=== PATIENT | female | born 1940 | race Caucasian/White ===

== ENCOUNTER → 2018-01-17 13:06 | Outpatient (CLI) | payer MEDICARE, OTHER, SELFPAY ==
--- NOTE | 2018-01-17 13:19 | MM_ITS ---
MM Dig screening mamm BI w/CAD CAD Screening COMPARISON: Outside digital mammograms 03/11/2016 INDICATION: There is no personal or family history of breast cancer. There is been previous biopsy left breast. TECHNIQUE: Standard CC and MLO images were obtained. R2 CAD reviewed. FINDINGS: Trauma post biopsy scarring is again noted upper outer quadrant left breast. Moderate fibro-glandular densities are seen in both breasts. There are few benign-appearing calcination is in both breasts. There is no new or suspicious lesion in either breast and no suspicious microcalcifications. IMPRESSION: Stable exam with prominent post biopsy scarring left breast BI-RADS Category: 2 Benign Finding(s) RECOMMENDED FOLLOW-UP: 1YR - 1 YEAR FOLLOW-UP (A letter has been sent to the patient regarding results of the study.)
== END ==
PROVIDERS: Visit Provider Internal Medicine Endocrinology, Diabetes & Metabolism
DX: Z12.31 Encounter for screening mammogram for malignant neoplasm of breast (principal)
CPT/HCPCS: 77067

== ENCOUNTER → 2018-01-17 14:10 | Outpatient (CLI) | payer MEDICARE, OTHER, SELFPAY ==
--- NOTE | 2018-01-17 14:11 | XR_ITS ---
XR foot wt bearing LT 3V HISTORY: ITS.REASON: pain ORDERING PHYSICIAN: Gaby Perez DPM PATIENT AGE: 77 years COMPARISON: None FINDINGS: Severe osteoarthritic changes are present at the first metatarsophalangeal joint with prominent bony hypertrophic change. No fracture or dislocation. There is mild hallux valgus with first metatarsophalangeal angle of 24 degrees. Osteoarthritic changes are also present at the PIP and DIP of the second and third digits. 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
--- NOTE | 2018-01-17 14:11 | XR_ITS ---
XR foot wt bearing RT 3V HISTORY: ITS.REASON: pain ORDERING PHYSICIAN: Gaby Perez DPM PATIENT AGE: 77 years COMPARISON: None FINDINGS: There is moderate hallux valgus with the first metatarsophalangeal angle of 35 degrees with osteoarthritic change of the first MTP joint and bony hypertrophy of the distal aspect of the first metatarsal. Osteoarthritic changes are present involving the second third and fourth toes at the PIP and the IVP. No fracture or dislocation. Flexion deformity involves the second through fifth toes. IMPRESSION: Hallux valgus with osteoarthritis and flexion deformity of the toes
== END ==
PROVIDERS: Visit Provider Podiatrist
DX: M79.671 Pain in right foot (principal); M79.672 Pain in left foot; Z12.31 Encounter for screening mammogram for malignant neoplasm of breast
CPT/HCPCS: 73630; 77067

== ENCOUNTER → 2018-04-13 11:24 | Outpatient (CLI) | payer MEDICARE, OTHER, SELFPAY ==
--- NOTE | 2018-04-13 11:27 | US_ITS ---
US Arterial Ankle Brachial Ind History: ITS.REASON: skin changes, bilateral weak pulses ORDERING PHYSICIAN: Gaby Perez DPM PATIENT AGE: 77 years TECHNIQUE: Segmental pressures obtained of both right and left leg. These are compared to brachial blood pressure to yield index at each level sampled including summary BOO. The data sheets from the procedure are available in PACS FINDINGS Rest study only performed today No prior studies available for comparison. Blood pressures reported are in millimeters mercury. RIGHT LEG BOO = 1.2. RIGHT LEG TBI=0.8 Brachial BP: 131 Thigh BP: 144 Calf BP: 157 Ankle PT: 157 Ankle DP : 148 Digit =108 LEFT LEG BOO = 1.3 LEFT LEG TBI= 0.8 Brachial BPD: 131 Thigh BP: 144 Calf BP: 157 Ankle PT:157 Ankle DP: 148 Digit = 108 Pulses and waveforms: Normal IMPRESSION: The left BOO slightly elevated at 1.3 which may be seen with vessel hardening from peripheral vascular disease. The remaining parameters are within normal limits.
== END ==
PROVIDERS: Visit Provider Podiatrist
DX: N39.0 Urinary tract infection, site not specified (principal); R09.89 Other specified symptoms and signs involving the circulatory and respiratory systems
CPT/HCPCS: 87086; 87088; 87186; 93922

== ENCOUNTER → 2018-05-09 10:43 | Outpatient (POV) | payer MEDICARE, OTHER, SELFPAY ==
[2018-05-09 11:18] VITALS: BP 130/68; PULSE 79; RESP 18; O2SAT 95
--- NOTE | 2018-05-09 12:36 | HMH.PMCON ---
Assessment and Plan (1) Degenerative disc disease Current visit: Yes Status: Acute Qualifiers: Spinal region: lumbar Qualified Code(s): M51.36 - Other intervertebral disc degeneration, lumbar region Category: Medical - Assessment and plan all Dx Assessment and Plan for all problems:: I discussed doing an epidural injection with the patient. Patient states that she is tried these before and she is here for a nerve block. I explained to the patient that using anesthetic is the nerve block. Patient does not know if she would like to move forward with this. Patient would like to make an appointment and think about it. Patient also having hip pain she would like to be by an orthopedic surgeon for this. This note was dictated using voice recognition software and may contain errors or omissions HPI - Data of Consult Consult date: 05/09/18 Requesting Physician: Camryn Pineda APRN Primary Care Provider: Luke Causey Provider: Luke Suggs - Consult Narrative Reason for consult: Back pain History of present illness: Ms. Garza is a 77 year old female resents today for consultation in regards to her low back pain. Patient states that she has quite a lot of low back pain radiating into her legs. Patient rates her pain today 9 out of 10. Patient states she is unable to take any medicine. Patient has been seen by pain management in the past with Dr. Curry. Patient received injections at that time. Patient states that she did not get any relief from them. Patient has tried and failed massage therapy, physical therapy, and chiropractic therapy. Patient states that her daughter works her physician in [place] and had told her she should try a nerve block. Patient is not on any anticoagulation medication. CC: Camryn Pineda APRN [facility] History I have reviewed the patient's past medical history: Yes Medical History: Reports:: Gastroesophageal Reflux Disease(GERD), Hyperlipidemia, Hypertension, Peripheral Vascular Disease Other Medical History: Reports: Arthritis, Glaucoma, Hypothyroidism, Other Other Surgeries: Yes: Coronary Stent, Hysterectomy-Partial Amputation: No Fractures: No - *Social History Smoking Status: Never smoker Alcohol Intake: never Alcohol Intake Frequency:: other Occupational Status: other Housing: house - Psychiatric History Expresses thoughts of harming self/others: None Suicide Plan Description: No Plan *Family Hx:: Diabetes Review of Systems - Review of Systems ROS General: no recent weight change, no fever, no sleep disturbances Respiratory: no cough, no shortness of air, no recurring pulmonary infections Cardiovascular/Peripheral Vascular: No chest pain, No palpitations, no edema, no shortness of breath. Gastrointestinal: no incontinence, normal bowel movements reported Genitourinary: no incontinence Musculoskeletal: Back pain, leg pain Psychiatric: normal mood/ affect Neurological: [denies weakness in extremities], [denies balance issues] Meds Home Medications Medication Instructions Recorded Confirmed Type cilostazol 50 mg tablet 50 mg PO ONCE 01/17/18 History latanoprost 0.005 % eye drops 1 drp OPHTHALMIC QPM 01/17/18 History levothyroxine 50 mcg tablet 50 mcg PO 90 Days tab 01/17/18 History pantoprazole 40 mg tablet,delayed PO 30 Days #60 01/17/18 History release cefuroxime axetil 250 mg tablet 250 mg PO Q12H 04/13/18 History Allergies Allergy/AdvReac Type Severity Reaction Status Date / Time From CIPRO Allergy Unknown NERVOUS,HIV Uncoded 04/13/18 08:18 ES From FLAGYL Allergy Unknown Uncoded 04/13/18 08:18 From TETANUS AND DIPHTHERIA Allergy Unknown ANAPHYLAXIS Uncoded 04/13/18 08:18 TOXOIDS A... SULFA (SULFONAMIDE) Allergy Unknown UNKNOWN Uncoded 04/13/18 08:18 Objective Vital signs: Pulse Resp BP Pulse Ox 79 18 130/68 95 05/09/18 11:18 05/09/18 11:18 05/09/18 11:18 05/09/18 11:18
--- NOTE | 2018-05-09 12:39 | P.CONS_ITS ---
Assessment and Plan (1) Degenerative disc disease Current visit: Yes Status: Acute Qualifiers: Spinal region: lumbar Qualified Code(s): M51.36 - Other intervertebral disc degeneration, lumbar region Category: Medical - Assessment and plan all Dx Assessment and Plan for all problems:: I discussed doing an epidural injection with the patient. Patient states that she is tried these before and she is here for a nerve block. I explained to the patient that using anesthetic is the nerve block. Patient does not know if she would like to move forward with this. Patient would like to make an appointment and think about it. Patient also having hip pain she would like to be by an orthopedic surgeon for this. This note was dictated using voice recognition software and may contain errors or omissions HPI - Data of Consult Consult date: 05/09/18 Requesting Physician: Camryn Pineda APRN Primary Care Provider: Luke Causey Provider: Luke Suggs - Consult Narrative Reason for consult: Back pain History of present illness: Ms. Garza is a 77 year old female resents today for consultation in regards to her low back pain. Patient states that she has quite a lot of low back pain radiating into her legs. Patient rates her pain today 9 out of 10. Patient states she is unable to take any medicine. Patient has been seen by pain management in the past with Dr. Curry. Patient received injections at that time. Patient states that she did not get any relief from them. Patient has tried and failed massage therapy, physical therapy, and chiropractic therapy. Patient states that her daughter works her physician in [place] and had told her she should try a nerve block. Patient is not on any anticoagulation medication. CC: Camryn Pineda APRN [facility] History I have reviewed the patient's past medical history: Yes Medical History: Reports:: Gastroesophageal Reflux Disease(GERD), Hyperlipidemia, Hypertension, Peripheral Vascular Disease Other Medical History: Reports: Arthritis, Glaucoma, Hypothyroidism, Other Other Surgeries: Yes: Coronary Stent, Hysterectomy-Partial Amputation: No Fractures: No - *Social History Smoking Status: Never smoker Alcohol Intake: never Alcohol Intake Frequency:: other Occupational Status: other Housing: house - Psychiatric History Expresses thoughts of harming self/others: None Suicide Plan Description: No Plan *Family Hx:: Diabetes Review of Systems - Review of Systems ROS General: no recent weight change, no fever, no sleep disturbances Respiratory: no cough, no shortness of air, no recurring pulmonary infections Cardiovascular/Peripheral Vascular: No chest pain, No palpitations, no edema, no shortness of breath. Gastrointestinal: no incontinence, normal bowel movements reported Genitourinary: no incontinence Musculoskeletal: Back pain, leg pain Psychiatric: normal mood/ affect Neurological: [denies weakness in extremities], [denies balance issues] Meds Home Medications Medication Instructions Recorded Confirmed Type cilostazol 50 mg tablet 50 mg PO ONCE 01/17/18 History latanoprost 0.005 % eye drops 1 drp OPHTHALMIC QPM 01/17/18 History levothyroxine 50 mcg tablet 50 mcg PO 90 Days tab 01/17/18 History pantoprazole 40 mg tablet,delayed PO 30 Days #60 01/17/18 History release cefuroxime axetil 250 mg tablet 250 mg PO Q12H 04/13/18 History
--- NOTE | 2018-05-18 10:37 | PC.PHONENOTE ---
contacted patient to notify her of appointment that was scheduled for orthopedist, per order of the provider at her last visit. pt states she does not want to see an orthopedist. states she has had MRI and all the shots and that she cannot have any interventions due to her age. Informed patient that this bond writer would call and cancel this appointment with the orthopedist. understanding verbalized.
== END ==
PROVIDERS: Visit Provider Clinical Nurse Specialist Family Health
DX: M51.36 Other intervertebral disc degeneration, lumbar region (principal)
CPT/HCPCS: 99202

== ENCOUNTER → 2020-10-27 16:00 | Outpatient (CLI) | payer MEDICARE, SELFPAY | PROVIDERS: Visit Provider Urology | DX: N39.0 Urinary tract infection, site not specified (principal) | CPT/HCPCS: 87086; 87088; 87186 ==

== ENCOUNTER → 2021-08-20 15:07 | Outpatient (CLI) | payer MEDICARE, SELFPAY | PROVIDERS: Visit Provider Urology | DX: N39.0 Urinary tract infection, site not specified (principal); B96.20 Unspecified Escherichia coli [E. coli] as the cause of diseases classified elsewhere | CPT/HCPCS: 87086; 87088; 87186 ==

== ENCOUNTER → 2022-03-12 15:00 | Outpatient (CLI) | payer MEDICARE, SELFPAY | PROVIDERS: PCP Nurse Practitioner; Visit Provider Nurse Practitioner | DX: R30.0 Dysuria (principal); B96.29 Other Escherichia coli [E. coli] as the cause of diseases classified elsewhere | CPT/HCPCS: 87086; 87088; 87186 ==

== ENCOUNTER → 2022-12-16 23:21 | Outpatient (CLI) | payer MEDICARE, BC, SELFPAY ==
[2022-12-16 18:20] LABS: Basophils % 0.5 % (0.1-2.0); Eosinophils % 0.5 % (0.1-12.0); Lymphocytes # 1.8 K/mm3 (0.7-4.5); Lymphocytes % 27.2 % (10-50); Mean Corpuscular HGB Conc 32.1 g/dL (31.8-35.4); Mean Corpuscular Hemoglobin 28.8 pg (27.0-31.2); Mean Corpuscular Volume 89.6 fl (81-99); Mean Platelet Volume 8.6 fl (7.4-10.4); Monocytes # 0.5 K/mm3 (0.1-1.0); Monocytes % 7.4 % (1.7-9.3); Neutrophils # 4.2 K/mm3 (1.8-7.8); Neutrophils % 64.4 % (37.0-80.0); Platelet Count 406 K/mm3 (142-424); Red Blood Count 2.32 M/mm3 (4.20-5.40); Red Cell Distribution Width 14.1 % (11.5-17.5); White Blood Count 6.6 K/mm3 (4.8-10.8)
[2022-12-16 18:27] LABS: Alanine Aminotransferase 18 U/L (12-78); Albumin Level 3.8 g/dl (3.5-5.0); Albumin/Globulin Ratio 1.6 (1.1-1.8); Alkaline Phosphatase 48 U/L (38-126); Anion Gap 16.9 mEq/L (5-15); Aspartate Amino Transferase 27 U/L (14-36); Bilirubin,Total 0.4 mg/dl (0.2-1.3); Blood Urea Nitrogen 30 mg/dl (7-17); Calcium 9.2 mg/dl (8.4-10.2); Carbon Dioxide 26 mmol/L (22.0-30.0); Chloride 100 mmol/L (98-107); Estimated Glomerular Filt Rate 47 ml/min (>60); GFR (African American) 57 ML/MIN (>60); Globulin 2.4 g/dL (1.3-3.2); Glucose 95 mg/dl (74-100); Potassium 4.9 mmoL/L (3.5-5.1); Sodium 138 mmol/L (136-145); Total Protein,Serum 6.2 g/dl (6.3-8.2)
[2022-12-16 18:55] LABS: Thyroid Stimulating Hormone 0.98 uIU/mL (0.465-4.68)
[2022-12-16 20:14] LABS: Hematocrit 20.8 % (37.0-47.0); Hemoglobin 6.7 g/dL (12.2-16.2)
== END ==
PROVIDERS: PCP Family Medicine; Visit Provider Family Medicine
DX: R30.0 Dysuria (principal); E05.90 Thyrotoxicosis, unspecified without thyrotoxic crisis or storm; B96.29 Other Escherichia coli [E. coli] as the cause of diseases classified elsewhere; D62 Acute posthemorrhagic anemia
CPT/HCPCS: 80053; 84443; 85025; 87086; 87088; 87186

== ENCOUNTER 2022-12-17 10:52 | Observation (INO) | payer MEDICARE, BC, SELFPAY ==
[2022-12-17] VITALS (28 sets, daily range): BP systolic 88–123; BP diastolic 34–93; PULSE 56–91; RESP 16–20; TEMP 36.5–37.3; O2SAT 90–100; BMI 19.9; BMI 18.5
--- NOTE | 2022-12-17 11:35 | PC.NURSE ---
lab at bedside
--- NOTE | 2022-12-17 11:49 | XR_ITS ---
FINAL REPORT CLINICAL HISTORY: WEAKNESS FINDINGS: SINGLE-VIEW CHEST The heart size is normal. The mediastinum is normal. There is mild bibasilar atelectasis or scar. There is no pneumothorax. IMPRESSION: Mild bibasilar atelectasis or scar. Reviewed, Interpreted and Dictated by Anson White III, MD Transcribed by Nirmala Seals Authenticated and . [facility]
[2022-12-17 11:57] LABS: Basophils % 0.4 % (0.1-2.0); Eosinophils % 0.5 % (0.1-12.0); Lymphocytes # 1.8 K/mm3 (0.7-4.5); Lymphocytes % 24.9 % (10-50); Mean Corpuscular HGB Conc 33.7 g/dL (31.8-35.4); Mean Corpuscular Volume 86.1 fl (81-99); Mean Platelet Volume 7.5 fl (7.4-10.4); Monocytes # 0.5 K/mm3 (0.1-1.0); Monocytes % 7.3 % (1.7-9.3); Neutrophils # 4.9 K/mm3 (1.8-7.8); Neutrophils % 66.9 % (37.0-80.0); Platelet Count 382 K/mm3 (142-424); Red Blood Count 2.25 M/mm3 (4.20-5.40); Red Cell Distribution Width 14.3 % (11.5-17.5); White Blood Count 7.3 K/mm3 (4.8-10.8)
--- NOTE | 2022-12-17 11:59 | ECG_ITS ---
APPROVED REPORT Exam: Resting ECG HR:63 bpm ECG Measurements Heart Rate 63 AXES IA 122 P -54 QRSd 92 QRS 42 QT 420 T 58 QTc 426 Conclusion SINUS RHYTHM NORMAL ECG UNCONFIRMED REPORT Electronically signed by : Tim Boyd MD 12/18/2022 07:14:04
--- NOTE | 2022-12-17 11:59 | HMH.EDGENADL ---
Discharge Plan Disposition Chief Complaint: Weakness Prescriptions Prescriptions: No Action rosuvastatin 20 mg tablet 20 mg PO Label Comments: TAKE 1 TABLET BY MOUTH EVERY DAY ezetimibe 10 mg tablet 10 mg PO Label Comments: TAKE 1 TABLET BY MOUTH EVERY DAY spironolactone 25 mg tablet 25 mg PO levothyroxine [Levoxyl] 100 mcg tablet 100 mcg PO ondansetron HCl 4 mg tablet 4 mg PO TID Qty: 30 3RF cephalexin 500 mg capsule 500 mg PO TID 7 Days Qty: 21 0RF Referrals Follow up/Referrals: Provider,Referral, [Referring] - See instructions Discharge ED Provider: Karen Mendoza General Adult HPI General Chief complaint: Weakness Stated complaint: weakness Time Seen by Provider: 12/17/22 11:59 Mode of Arrival: EMS Source of Information: Patient Limitations: No Limitations Description of Symptoms (Recalled from ER Triage Doc. by RN): Presents to ED with complaints of generalized weakness. Patient saw PCP yesterday with routine labs resulting in Hgb 6.8. Pt. scheduled for blood transfusion today however too weak to make appt. +Xalrelto, hx of a-fib. Recent fall on mother's day. Denies hx of chronic anemia. Denies black tarry stool or bright red blood per rectum. History of Present Illness HPI narrative: Patient is an 82-year-old female on Xarelto who fell on Mother's Day and subsequently has been significantly fatigued and having some nausea. She went to her primary care doctor yesterday and had blood work drawn which showed she was significantly anemic and was sent to the emergency department. Patient denies any melena hematochezia or hematemesis. Patient denies any significant injuries but she did states she had the left side of her chest and abdominal wall and the injury on Mother's Day. No external bleeding that she is aware of. Related Data Home Medications Medication Instructions Recorded Confirmed ezetimibe 10 mg tablet 10 mg PO 03/09/22 12/16/22 levothyroxine 100 mcg tablet 100 mcg PO 03/09/22 12/16/22 (Levoxyl) rosuvastatin 20 mg tablet 20 mg PO 03/09/22 12/16/22 spironolactone 25 mg tablet 25 mg PO 03/09/22 12/16/22 Previous Rx's Medication Instructions Recorded cephalexin 500 mg capsule 500 mg PO TID 7 days #21 caps 12/16/22 ondansetron HCl 4 mg tablet 4 mg PO TID #30 tabs 12/16/22 Allergies Allergy/AdvReac Type Severity Reaction Status Date / Time sulfamethoxazole Allergy Severe Unknown Verified 12/16/22 12:17 [From Bactrim] allergy reaction trimethoprim [From Bactrim] Allergy Severe Unknown Verified 12/16/22 12:17 allergy reaction nitrofurantoin AdvReac Verified 12/16/22 12:42 [From Macrobid] From CIPRO Allergy Unknown NERVOUS,HIV Uncoded 12/16/22 10:28 ES From FLAGYL Allergy Unknown Uncoded 12/16/22 10:28 From TETANUS AND DIPHTHERIA Allergy Unknown ANAPHYLAXIS Uncoded 12/16/22 10:28 TOXOIDS A... SULFA (SULFONAMIDE) Allergy Unknown UNKNOWN Uncoded 12/16/22 10:28 [facility] Disclaimer: The information contained in this section may have been updated after the patient was seen, as this information can be updated by other users. Social History Smoking Status: Never smoker alcohol intake: never substance use type: denies use current occupational status: other Travel in the last 8 weeks: None household members: none housing: house ROS Obtained: Yes All systems reviewed & no additional complaints except as documented Physical Exam General General appearance: other (Pale) Respiratory Respiratory exam: Present normal lung sounds bilaterally Cardiovascular Cardiovascular exam: Present regular rate Neurological Exam Neurological exam: Present alert and oriented X3 Medical Decision Making Massimo Inquiry Pt receiving controlled substance: No Vital Signs: 12/17/22 10:53 12/17/22 11:00 12/17/22 11:44 Temperature 98.1 F
[2022-12-17 12:00] LABS: Occult Blood,Stool Positive (Negative)
[2022-12-17 12:00] LABS: Chloride 103 mmol/L (98-107); Sodium 137 mmol/L (136-145)
[2022-12-17 12:01] LABS: Potassium 4.3 mmoL/L (3.5-5.1)
[2022-12-17 12:03] LABS: Alanine Aminotransferase 20 U/L (12-78); Alkaline Phosphatase 50 U/L (38-126); Aspartate Amino Transferase 30 U/L (14-36); Bilirubin,Total 0.3 mg/dl (0.2-1.3); Blood Urea Nitrogen 25 mg/dl (7-17); Creatinine Clearance Estimated 28 mL/min (50-200); Estimated Glomerular Filt Rate 47 ml/min (>60); GFR (African American) 57 ML/MIN (>60)
[2022-12-17 12:04] LABS: Albumin Level 3.6 g/dl (3.5-5.0); Albumin/Globulin Ratio 1.3 (1.1-1.8); Anion Gap 10.3 mEq/L (5-15); Calcium 9.2 mg/dl (8.4-10.2); Carbon Dioxide 28 mmol/L (22.0-30.0); Globulin 2.7 g/dL (1.3-3.2); Glucose 95 mg/dl (74-100); Total Protein,Serum 6.3 g/dl (6.3-8.2)
[2022-12-17 12:06] LABS: Hematocrit 19.3 % (37.0-47.0); Hemoglobin 6.5 g/dL (12.2-16.2)
--- NOTE | 2022-12-17 12:06 | PC.NURSE ---
pt daughter at BS
--- NOTE | 2022-12-17 12:16 | CT_ITS ---
FINAL REPORT TECHNIQUE: Postcontrast axial images through the abdomen and pelvis were performed. This study was performed with techniques to keep radiation doses as low as reasonably achievable, (ALARA). Individualized dose reduction techniques using automated exposure control or adjustment of mA and/or kV according to the patient's size were employed. CLINICAL HISTORY: trauma, xarelto, anemia FINDINGS: Abdomen: There is a moderate hiatal hernia. There is bibasilar atelectasis, left greater than right. The liver is normal in size and attenuation. There is mild nonspecific gallbladder wall thickening. The spleen is unremarkable. The adrenals are normal. The pancreas is unremarkable. There is a left renal cyst. The aorta is normal in caliber. No free fluid or adenopathy is identified. No findings for mechanical bowel obstruction are identified. Pelvis: The appendix is not identified. The patient is status post hysterectomy. There is a moderate to large amount of retained stool throughout the colon. The urinary bladder is unremarkable. No free fluid, free air, abscess or adenopathy is identified. IMPRESSION: Mild nonspecific gallbladder wall thickening. Stool burden as above. Reviewed, Interpreted and Dictated by Anson White III, MD Transcribed by Nirmala Seals Authenticated and [facility]
--- NOTE | 2022-12-17 12:16 | CT_ITS ---
FINAL REPORT CLINICAL HISTORY: trauma, xarelto, anemia FINDINGS: Axial CT images of the chest were obtained with contrast. Coronal reformatted images were also obtained. This study was performed with techniques to keep radiation doses as low as reasonably achievable, (ALARA). Individualized dose reduction techniques using automated exposure control or adjustment of mA and/or KV according to the patient's size were employed. There is a moderate hiatal hernia. There is no evidence of mediastinal or hilar mass or adenopathy.No axillary mass or adenopathy is identified. On lung window images, no pulmonary mass or dominant pulmonary nodule is identified. No localized pulmonary inflammatory process is identified. There is bibasilar atelectasis, left greater than right. IMPRESSION: Bibasilar atelectasis. Reviewed, Interpreted and Dictated by Anson White III, MD Transcribed by Nirmala Seals Authenticated and [facility]
[2022-12-17 12:19] LABS: Troponin I < 0.01 ng/ml (0.00-0.034)
[2022-12-17 12:29] LABS: Activated Partial Thrombo Time 23.1 seconds (22.8-30.6); INR 1.13 (0.9-1.1); Prothrombin Time 12.1 seconds (10.1-12.5)
--- NOTE | 2022-12-17 12:32 | PC.NURSE ---
Provided and discussed blood transfusion consent with patient and daughter. No further questions at this time.
--- NOTE | 2022-12-17 12:39 | PC.NURSE ---
CT called to inform that we need to give IV fluids before patient can be scanned. Attending notified
[2022-12-17 13:24] LABS: Coronavirus 19, PCR Not Detected (NotDetected); Influenza A, PCR Not Detected (NotDetected); Influenza B, PCR Not Detected (NotDetected)
--- NOTE | 2022-12-17 13:42 | PC.NURSE ---
Patient to CT
--- NOTE | 2022-12-17 13:47 | PC.NURSE ---
notified care management of admission
--- NOTE | 2022-12-17 14:02 | ECG_ITS ---
APPROVED REPORT Exam: Resting ECG HR:90 bpm ECG Measurements Heart Rate 90 AXES CA 142 P 57 QRSd 87 QRS 71 QT 329 T 255 QTc [address] DEVIATION AND MODERATE T-WAVE ABNORMALITY, CONSIDER ANTEROLATERAL ISCHEMIA [-0.1+ mV T-WAVE IN V3-V6] ST DEVIATION AND MODERATE T-WAVE ABNORMALITY, CONSIDER INFERIOR ISCHEMIA [-0.1+ mV T-WAVE IN II/aVF] ABNORMAL ECG UNCONFIRMED REPORT Electronically signed by : Tim Boyd MD 12/18/2022 07:13:43
--- NOTE | 2022-12-17 14:04 | HMH.PHAINT1 ---
Pharmacy Intervention Comments: MEDICATION RECONCILIATION COMPLETED ON PATIENT USING EXTERNAL FILL HISTORY FROM PHARMACY AND LIST FROM PCP OFFICE. -DALI LINDSEY, JUSTYND
--- NOTE | 2022-12-17 14:09 | PC.NURSE ---
CT notified ED of new c/o midsternum chest pain while lying flat on CT scanner. RN x 2 to bedside. EKG completed. MD notified. Pt returned to room via stretcher with RN x 2. Pt placed on telemetry. MD to bedside.
--- NOTE | 2022-12-17 14:36 | PC.NURSE ---
Attempted report; RN will call back.
--- NOTE | 2022-12-17 14:36 | PC.NURSE ---
Lab at bedside
--- NOTE | 2022-12-17 14:56 | EXP.HP ---
History of Present Illness *Admission Date: 12/17/22 *Reason for visit:: weakness *History of present illness: Patient is an 82-year-old female on Xarelto for atrial fibrillation who had a fall on Mother's Day. Since this time she has been having fatigue and nausea.? primary care doctor yesterday and had blood work drawn which showed she was significantly anemic and was sent to the emergency department.? Patient denies any melena hematochezia or hematemesis.? Patient denies any significant injuries but she did states she had the left side of her chest and abdominal wall and the injury on Mother's Day.? No external bleeding that she is aware of/. In ED stool occult positive. Given 2 units PRBC for anemia. Having chest pain. No other concerns or complaints at this time. [facility] Disclaimer: The information contained in this section may have been updated after the patient was seen, as this information can be updated by other users. Social History Smoking Status: Never smoker alcohol intake: never substance use type: denies use current occupational status: other Travel in the last 8 weeks: None household members: none housing: house Review of Systems Review of Systems Review of systems:: pertinent systems reviewed and negative unless documented below *Gastrointestinal Gastrointestinal: Reports system reviewed and no additional complaints, except as documented *Genitourinary Genitourinary: Reports system reviewed and no additional complaints, except as documented *Musculoskeletal Musculoskeletal: Reports system reviewed and no additional complaints, except as documented Meds Home Medications and Allergies Home Medications Medication Instructions Recorded Confirmed Type ezetimibe 10 mg tablet 10 mg PO DAILY Cholesterol 03/09/22 12/17/22 History rosuvastatin 20 mg tablet 20 mg PO DAILY Cholesterol 03/09/22 12/17/22 History spironolactone 25 mg tablet 25 mg PO DAILY Fluid 03/09/22 12/17/22 History cephalexin 500 mg capsule 500 mg PO TID Infection 12/17/22 12/17/22 History latanoprost 0.005 % eye drops 1 drp ophthalmic (eye) HS Glaucoma 12/17/22 12/17/22 History levothyroxine 50 mcg tablet 50 mcg PO DAILY THYROID 12/17/22 12/17/22 History ondansetron HCl 4 mg tablet 4 mg PO TIDP PRN Nausea 12/17/22 12/17/22 History New Prescriptions to Start Prescriptions: Allergies Allergy/AdvReac Type Severity Reaction Status Date / Time sulfamethoxazole Allergy Severe Unknown Verified 12/16/22 12:17 [From Bactrim] allergy reaction trimethoprim [From Bactrim] Allergy Severe Unknown Verified 12/16/22 12:17 allergy reaction nitrofurantoin AdvReac Verified 12/16/22 12:42 [From Macrobid] From CIPRO Allergy Unknown NERVOUS,HIV Uncoded 12/16/22 10:28 ES From FLAGYL Allergy Unknown Uncoded 12/16/22 10:28 From TETANUS AND DIPHTHERIA Allergy Unknown ANAPHYLAXIS Uncoded 12/16/22 10:28 TOXOIDS A... SULFA (SULFONAMIDE) Allergy Unknown UNKNOWN Uncoded 12/16/22 10:28 Exam Data for Last 24 hours Vital signs and Labs for Last 24 Hours: Temp Pulse Resp BP Pulse Ox 98.1 F 65 20 102/54 L 100 12/17/22 10:53 12/17/22 13:00 12/17/22 13:00 12/17/22 13:00 12/17/22 13:00 Laboratory Results - last 24 hr 12/17/22 11:40: WBC 7.3, RBC 2.25 L, Hgb 6.5 L*, Hct 19.3 L*, MCV 86.1, MCH 29.0, MCHC 33.7, RDW 14.3, Plt Count 382, MPV 7.5, Neut % (Auto) 66.9, Lymph % (Auto) 24.9, [place] % (Auto) 7.3, Eos % (Auto) 0.5, Baso % (Auto) 0.4, Neut # (Auto) 4.9, Lymph # (Auto) 1.8, [place] # (Auto) 0.5, Eos # (Auto) 0.0, Baso # (Auto) 0.0 12/17/22 11:40: PT 12.1, INR 1.13 H, APTT 23.1 12/17/22 11:40: Sodium 137, Potassium 4.3, Chloride 103, Carbon Dioxide 28, Anion Gap 10.3, BUN 25 H, Creatinine 1.10 H, Estimated Creat Clear 28, Estimated GFR 47 L, Est GFR ( Amer) 57 L, Glucose 95, Calcium 9.2, Total Bilirubin 0.3, AST 30, ALT 20, Alkaline Phosphatase 50, T
--- NOTE | 2022-12-17 14:57 | PC.NURSE ---
ERYN Leal AT BS, TECHS FROM SECOND FLOOR IS NOW HER TO TAKE PT TO [facility]
--- NOTE | 2022-12-17 19:46 | PC.NURSE ---
NOTIFIED K MOISÉS /LALY RE LOW BP 88/36 ASYMPTOMATIC. TO COME SEE PATIENT. 2NDUNIT BLD INFUSING AT 150ML/HR/PUMP.
--- NOTE | 2022-12-17 19:54 | PC.NURSE ---
Addendum entered by Ana Melgoza RN 12/18/22 00:10: ALY LOPEZ NP Original Note: Katie RUFFIN SAW PATIENT. ORTHOSTATIC VSs: STANDING BP 96/51 HR 106 02 SAT 99% RA. 18 RESPS. ASYMPTOMATIC.
--- NOTE | 2022-12-17 20:22 | EXP.ACUTE.PN ---
Subjective *Date: 12/18/22 *Time: 07:42 Interval history: nurseing reported BP systolic less than 90 . Medical Exam Vital signs and Labs for Last 24 Hours: Vital Signs Temp Pulse Pulse Resp BP BP Pulse Ox 12/17/22 19:35 98.6 F 69 18 88/36 L 100 12/17/22 19:20 99.1 F 67 18 93/40 L 100 12/17/22 19:05 98.0 F 75 18 104/43 L 99 12/17/22 18:50 97.9 F 71 20 97/44 L 98 12/17/22 18:45 97.9 F 73 16 99/37 L 98 12/17/22 18:40 98.0 F 69 18 99/39 L 99 12/17/22 18:35 98.5 F 69 16 114/34 L 96 12/17/22 18:30 98.1 F 91 H 16 123/51 L 98 12/17/22 18:10 98.1 F 60 20 93/64 L 98 12/17/22 18:05 98.1 F 60 20 111/50 L 98 12/17/22 17:05 97.8 F 56 L 16 100/44 L 98 12/17/22 16:05 97.7 F 64 17 111/57 L 98 12/17/22 16:50 98.1 F 57 L 18 94/55 L 100 12/17/22 16:35 97.9 F 56 L 16 98/62 L 100 12/17/22 16:20 97.9 F 60 18 99/38 L 100 12/17/22 16:15 97.8 F 57 L 16 96/47 L 100 12/17/22 16:10 97.9 F 61 18 96/54 L 100 12/17/22 16:05 98.0 F 67 16 91/44 L 100 12/17/22 16:00 98.1 F 57 L 16 109/45 L 100 12/17/22 15:02 98.1 F 69 19 120/53 L 12/17/22 13:00 65 20 102/54 L 100 12/17/22 12:30 66 16 108/44 L 100 12/17/22 12:00 64 18 110/50 L 100 12/17/22 11:44 64 20 102/46 L 94 L 12/17/22 11:00 74 18 116/93 H 90 L 12/17/22 10:53 98.1 F 70 16 121/52 L 95 Intake and Output 12/17/22 12/17/22 12/17/22 07:59 15:59 23:59 Intake Total 310 / 310 Output Total 600 / 600 Balance -290 / -290 Intake: Intake, Other Amount 60 / 60 Intake (Blood Product) Amt 250 / 250 Red Blood Cells Unit 250 / 250 [id number] Red Blood Cells Unit 0 / 0 [id number] Output: Output, Urine Amount 600 / 600 Other: Number of Unmeasured Voids 0 Weight 46.351 kg 42.836 kg Patient Weight 12/17/22 23:59 Weight 42.836 kg Laboratory Results - last 24 hr 12/17/22 11:40: WBC 7.3, RBC 2.25 L, Hgb 6.5 L*, Hct 19.3 L*, MCV 86.1, MCH 29.0, MCHC 33.7, RDW 14.3, Plt Count 382, MPV 7.5, Neut % (Auto) 66.9, Lymph % (Auto) 24.9, [place] % (Auto) 7.3, Eos % (Auto) 0.5, Baso % (Auto) 0.4, Neut # (Auto) 4.9, Lymph # (Auto) 1.8, [place] # (Auto) 0.5, Eos # (Auto) 0.0, Baso # (Auto) 0.0 12/17/22 11:40: PT 12.1, INR 1.13 H, APTT 23.1 12/17/22 11:40: Sodium 137, Potassium 4.3, Chloride 103, Carbon Dioxide 28, Anion Gap 10.3, BUN 25 H, Creatinine 1.10 H, Estimated Creat Clear 28, Estimated GFR 47 L, Est GFR ( Amer) 57 L, Glucose 95, Calcium 9.2, Total Bilirubin 0.3, AST 30, ALT 20, Alkaline Phosphatase 50, Troponin I < 0.01, Total Protein 6.3, Albumin 3.6, Globulin 2.7, Albumin/Globulin Ratio 1.3 12/17/22 11:40: Blood Type A Negative, Antibody Screen Negative, Crossmatch (G) See Detail 12/17/22 11:55: Stool Occult Blood Positive A 12/17/22 13:15: SARS-CoV-2 (PCR) Not detected, Influenza A Untype (PCR) Not detected, Influenza Type B (PCR) Not detected 12/17/22 14:39: Blood Type Confirm A Negative I & O for Labs for Last 24 Hours: Intake & Output 12/14/22 12/15/22 12/16/22 12/17/22 23:59 23:59 23:59 23:59 Intake Total 310 / 310 Output Total 600 / 600 Balance -290 / -290 Weight 42.836 kg Head: Present atraumatic and normocephalic Neck: Present normal inspection Comment:: lungs clear Cardiac: Present Reg Rate and Rhythm (normal on standing heart rate to 106 no distress ) GI: Present soft and tenderness (none tender to palpation ) Extremities: Present normal inspection Skin: Present intact and warm Comment:: improved color , more pink receiving 2nd unit blood Neuro: Present alert and oriented x 3 Additional Findings:: was up to bathroom to self cath, she noted no issues no lightheadedness Assessment and Plan *Assessment and plan (1) Hypothyroidism: Status: Acute Category: Medical Code(s): E03.9
[2022-12-17 20:31] LABS: Microscopic, Urine URINE MICROSCOPIC (MICROSCOPIC)
[2022-12-17 20:35] LABS: Appearance,Urine CLEAR (Clear); Bilirubin,Urine Negative (Negative); Blood, Urine TRACE-I (Negative); Color,Urine YELLOW (Yellow); Glucose,Urine (UA) Negative (Negative); Ketones,Urine Negative (Negative); Leukocyte Esterase,Urine Negative (Negative); Nitrate,Urine POSITIVE (Negative); PH,Urine 5.5 (5.0-8.5); Protein,Urine Negative (Negative); Urobilinogen,Urine 0.2 EU/dl (0.2)
--- NOTE | 2022-12-17 20:43 | PC.NURSE ---
SECOND UNIT PRBCs COMPLETED. NO S/S OF ADVERSE REACTIONS. LAB NOTIFIED TO DRAW 1 HR H&H AT 2130.
[2022-12-17 20:48] LABS: Bacteria,Urine Trace /lpf
[2022-12-17 21:56] LABS: Hematocrit 26.2 % (37.0-47.0)
[2022-12-17 22:01] LABS: Hemoglobin 8.5 g/dL (12.2-16.2)
[2022-12-18] VITALS (16 sets, daily range): BP systolic 86–117; BP diastolic 34–68; PULSE 58–84; RESP 16–20; TEMP 36.3–36.8; O2SAT 93–99; BMI 18.9
--- NOTE | 2022-12-18 05:44 | PC.NURSE ---
PATIENT HAS BEEN NPO SINCE MIDNIGHT FOR PROCEDURE.
--- NOTE | 2022-12-18 07:55 | EXP.SURG.CON ---
History of Present Illness *Admission Date: 12/17/22 *Reason for visit:: Anemia *History of present illness: This is an 82-year-old female seen in consultation from the hospital service for evaluation regarding possible gastrointestinal hemorrhage. Please see HPI forwarded from admission H&P below. She states that she feels better after the blood . She reports multiple colonoscopies historically and she also reports history of esophagogastroduodenoscopy. She is a somewhat poor historian and further details are vague. Forwarded from admission H&P: Patient is an 82-year-old female on Xarelto for atrial fibrillation who had a fall on Mother's Day. Since this time she has been having fatigue and nausea.? primary care doctor yesterday and had blood work drawn which showed she was significantly anemic and was sent to the emergency department.? Patient denies any melena hematochezia or hematemesis.? Patient denies any significant injuries but she did states she had the left side of her chest and abdominal wall and the injury on Mother's Day.? No external bleeding that she is aware of/. In ED stool occult positive. Given 2 units PRBC for anemia. Having chest pain. No other concerns or complaints at this time. [facility] Disclaimer: The information contained in this section may have been updated after the patient was seen, as this information can be updated by other users. Medical History (Updated 12/17/22 @ 15:38 by Zaida Monroy RN) HLD (hyperlipidemia) Hypotension Hypothyroidism Self-catheterizes urinary bladder Thyroid tumor, benign UTI (urinary tract infection) Surgical History (Updated 12/17/22 @ 15:38 by Zaida Monroy RN) History of partial hysterectomy S/P breast biopsy, left Family History (Updated 12/17/22 @ 15:35 by Zaida Monroy RN) No significant family history Social History Smoking Status: Never smoker alcohol intake: never substance use type: denies use current occupational status: other Travel in the last 8 weeks: None household members: none housing: house Meds Home Medications and Allergies Home Medications Medication Instructions Recorded Confirmed Type ezetimibe 10 mg tablet 10 mg PO DAILY Cholesterol 03/09/22 12/17/22 History rosuvastatin 20 mg tablet 20 mg PO DAILY Cholesterol 03/09/22 12/17/22 History spironolactone 25 mg tablet 25 mg PO DAILY Fluid 03/09/22 12/17/22 History cephalexin 500 mg capsule 500 mg PO TID Infection 12/17/22 12/17/22 History latanoprost 0.005 % eye drops 1 drp ophthalmic (eye) HS Glaucoma 12/17/22 12/17/22 History levothyroxine 50 mcg tablet 50 mcg PO DAILY THYROID 12/17/22 12/17/22 History ondansetron HCl 4 mg tablet 4 mg PO TIDP PRN Nausea 12/17/22 12/17/22 History New Prescriptions to Start Prescriptions: Allergies Allergy/AdvReac Type Severity Reaction Status Date / Time sulfamethoxazole Allergy Severe Unknown Verified 12/16/22 12:17 [From Bactrim] allergy reaction trimethoprim [From Bactrim] Allergy Severe Unknown Verified 12/16/22 12:17 allergy reaction nitrofurantoin AdvReac Verified 12/16/22 12:42 [From Macrobid] From CIPRO Allergy Unknown NERVOUS,HIV Uncoded 12/16/22 10:28 ES From FLAGYL Allergy Unknown Uncoded 12/16/22 10:28 From TETANUS AND DIPHTHERIA Allergy Unknown ANAPHYLAXIS Uncoded 12/16/22 10:28 TOXOIDS A... SULFA (SULFONAMIDE) Allergy Unknown UNKNOWN Uncoded 12/16/22 10:28 Exam (Inpt) Vital signs and Labs for Last 24 Hours: Temp Pulse Resp BP Pulse Ox 97.8 F 63 17 104/54 L 97 12/18/22 07:18 12/18/22 07:18 12/18/22 07:18 12/18/22 07:18 12/18/22 07:18 Laboratory Results - last 24 hr 12/17/22 11:40: WBC 7.3, RBC 2.25 L, Hgb 6.5 L*, Hct 19.3 L*, MCV 86.1, MCH 29.0, MCHC 33.7, RDW 14.3, Plt Count 382, MPV 7.5, Neut % (Auto) 66.9, Lymph % (Auto) 24.9, [place] % (Auto) 7.3, Eos % (Auto) 0.5, Baso % (Auto) 0.4, Neut # (A
--- NOTE | 2022-12-18 07:57 | PC.NURSE ---
pt to scope room via stretcher.
--- NOTE | 2022-12-18 08:32 | HMH.SCOPE ---
Procedure: Date: 12/18/22 Patient Date of :: 1940 Procedure Performed:: Esophagogastroduodenoscopy with biopsy Indications:: Anemia Performing Provider:: Joe Fletcher MD Referring Provider:: . Sedation:: Monitored anesthesia care Procedure:: After informed consent was obtained the patient was taken to the endoscopy suite. Sedation ensued after the patient was transferred to the left lateral decubitus position. Pulse, blood pressure, and oxygen saturation were monitored throughout the procedure. The endoscope was advanced beyond the duodenal bulb. Retroflexion within the gastric lumen was accomplished. The gastroscope was carefully removed and the patient was transferred to recovery in stable condition. Please see findings and specimens below for detail. Findings:: Mild/early Schatzki ring Moderate sliding hiatal hernia No sign of active/recent hemorrhage No significant gastritis No obvious ulceration Specimens:: Antral biopsy Recommendations:: Follow-up pathology Continue evaluation for anemia (preferably in the outpatient setting) Complications:: No immediate Estimated blood obtained (mL): 1
--- NOTE | 2022-12-18 08:34 | EXP.ANES.CKL ---
[facility] Disclaimer: The information contained in this section may have been updated after the patient was seen, as this information can be updated by other users. Medical History (Updated 12/17/22 @ 15:38 by Zaida Monroy RN) HLD (hyperlipidemia) Hypotension Hypothyroidism Self-catheterizes urinary bladder Thyroid tumor, benign UTI (urinary tract infection) Surgical History (Updated 12/17/22 @ 15:38 by Zaida Monroy RN) History of partial hysterectomy S/P breast biopsy, left Family History (Updated 12/17/22 @ 15:35 by Zaida Monroy RN) Other No significant family history Social History Smoking Status: Never smoker alcohol intake: never substance use type: denies use current occupational status: other Travel in the last 8 weeks: None household members: none housing: house [facility] Anesthesia Checklist Patient Identification Patient Identification: Arm Band and Family Structural Data Admitted From: Inpatient Planned Operative Procedure/s: EGD Consent for Planned Operative Procedure(s) Verified: Yes Verified Documents: Surgical Consent and History and Physical NPO Status Verified Time NPO: 00:00 Additional verifications Patient : No Anesthesia Reactions: No Hx Blood Transfusions: No Blood Transfusion Reaction: No Cephalosporin Allergy: No Previous Colonoscopy: Yes Airway Assessment C-Spine Mobility Assessed: Yes TMJ Mobility Assessed: Yes Dentition: Edentulous Neurological Assessment Level of Consciousness: Awake, Alert, Appropriate and Follows Commands Hx Seizures: No Numbness or tingling in extremities: No Anesthesia Plan Anesthesia Risk discussed: Yes ASA Class: III Anesthesia Type: MAC Preoperative Comments Pre-Operative Comments: Advanced age. minimal dementia. gastric bleed. Recent CO. Cardiac stent. Dysphasia.
--- NOTE | 2022-12-18 08:36 | PC.NURSE ---
received report from Katherine Vee RN. No findings from EGD. Did send biopsies. VSS.
--- NOTE | 2022-12-18 08:53 | SUR.PHASEII ---
0839- detailed report called to bala spring on [facility] floor. 0841- pt left in stable condition with bala spring in pt room. All VSS, family at bedside.
[2022-12-18 11:06] LABS: POC Glucose,Bedside 166 (70-110)
[2022-12-18 12:17] LABS: Basophils % 0.5 % (0.1-2.0); Eosinophils % 0.8 % (0.1-12.0); Hematocrit 27.1 % (37.0-47.0); Hemoglobin 8.9 g/dL (12.2-16.2); Lymphocytes # 1.7 K/mm3 (0.7-4.5); Lymphocytes % 29.7 % (10-50); Mean Corpuscular HGB Conc 32.9 g/dL (31.8-35.4); Mean Corpuscular Hemoglobin 29.2 pg (27.0-31.2); Mean Corpuscular Volume 88.8 fl (81-99); Mean Platelet Volume 7.8 fl (7.4-10.4); Monocytes # 0.5 K/mm3 (0.1-1.0); Monocytes % 8.5 % (1.7-9.3); Neutrophils # 3.4 K/mm3 (1.8-7.8); Neutrophils % 60.6 % (37.0-80.0); Platelet Count 297 K/mm3 (142-424); Red Blood Count 3.05 M/mm3 (4.20-5.40); Red Cell Distribution Width 14.8 % (11.5-17.5); White Blood Count 5.6 K/mm3 (4.8-10.8)
[2022-12-18 12:20] LABS: Chloride 105 mmol/L (98-107); Potassium 3.7 mmoL/L (3.5-5.1); Sodium 137 mmol/L (136-145)
[2022-12-18 12:23] LABS: Alanine Aminotransferase 22 U/L (12-78); Albumin/Globulin Ratio 1.4 (1.1-1.8); Alkaline Phosphatase 38 U/L (38-126); Anion Gap 10.7 mEq/L (5-15); Aspartate Amino Transferase 30 U/L (14-36); Bilirubin,Total 0.4 mg/dl (0.2-1.3); Blood Urea Nitrogen 19 mg/dl (7-17); Calcium 8.4 mg/dl (8.4-10.2); Carbon Dioxide 25 mmol/L (22.0-30.0); Creatinine Clearance Estimated 29 mL/min (50-200); Estimated Glomerular Filt Rate 60 ml/min (>60); GFR (African American) 72 ML/MIN (>60); Globulin 2.2 g/dL (1.3-3.2); Glucose 127 mg/dl (74-100); Magnesium 2.1 mg/dl (1.6-2.3); Phosphorous 3.2 mg/dl (2.5-4.5); Total Protein,Serum 5.2 g/dl (6.3-8.2)
--- NOTE | 2022-12-18 13:42 | EXP.DC.SUM ---
General Admission date:: 12/17/22 HPI HPI HPI: This is an 82-year-old female seen in consultation from the hospital service for evaluation regarding possible gastrointestinal hemorrhage. Please see HPI forwarded from admission H&P below. She states that she feels better after the blood . She reports multiple colonoscopies historically and she also reports history of esophagogastroduodenoscopy. She is a somewhat poor historian and further details are vague. Forwarded from admission H&P: Patient is an 82-year-old female on Xarelto for atrial fibrillation who had a fall on Mother's Day. Since this time she has been having fatigue and nausea.? primary care doctor yesterday and had blood work drawn which showed she was significantly anemic and was sent to the emergency department.? Patient denies any melena hematochezia or hematemesis.? Patient denies any significant injuries but she did states she had the left side of her chest and abdominal wall and the injury on Mother's Day.? No external bleeding that she is aware of/. In ED stool occult positive. Given 2 units PRBC for anemia. Having chest pain. No other concerns or complaints at this time. Hospital Course Hospital Course Hospital Course: Admitted for symptomatic anemia hemoglobin 6.5 with positive occult. Blood loss due to GI bleed on Xarelto for paroxysmal A-fib. Patient was admitted and received 2 units packed red blood cells. Symptomatically improved with transfusion. Patient and current normal sinus rhythm. General surgery consulted performed EGD with no signs of bleed. Surgery recommended outpatient colonoscopy. Since patient is normal sinus rhythm and bleeding on anticoagulation, Xarelto was held and she was placed on amiodarone to maintain normal sinus rhythm to reduce stroke risk. Discussed follow-up with cardiology here at [facility] and patient is agreeable. CBC on discharge shows stable hemoglobin, patient was discharged home. No abx for asymptomatic uti. Exam Data for Last 24 hours Vital signs and Labs for Last 24 Hours: Temp Pulse Resp BP Pulse Ox 98.3 F 83 16 101/54 L 98 12/18/22 12:45 12/18/22 12:45 12/18/22 12:45 12/18/22 12:45 12/18/22 12:45 Laboratory Results - last 24 hr 12/17/22 11:40: Blood Type A Negative, Antibody Screen Negative, Crossmatch (AHG) See Detail 12/17/22 13:15: SARS-CoV-2 (PCR) Not detected, Influenza A Untype (PCR) Not detected, Influenza Type B (PCR) Not detected 12/17/22 14:39: Blood Type Confirm A Negative 12/17/22 18:35: Urine Color Yellow, Urine Appearance Clear, Urine pH 5.5, Ur Specific [place] 1.010, Urine Protein Negative, Urine Glucose (UA) Negative, Urine Ketones Negative, Urine Blood Trace-i, Urine Nitrate Positive, Urine Bilirubin Negative, Urine Urobilinogen 0.2, Ur Leukocyte Esterase Negative, Urine RBC None, Urine WBC 3-5, Ur Squamous Epith Cells None, Urine Bacteria Trace 12/17/22 21:45: Hgb 8.5 L D, Hct 26.2 L 12/18/22 10:57: POC Glucose 166 H 12/18/22 12:00: Sodium 137, Potassium 3.7, Chloride 105, Carbon Dioxide 25, Anion Gap 10.7, BUN 19 H, Creatinine 0.90, Estimated Creat Clear 29, Estimated GFR 60, Est GFR ( Amer) 72 D, Glucose 127 H, Calcium 8.4, Phosphorus 3.2, Magnesium 2.1, Total Bilirubin 0.4, AST 30, ALT 22, Alkaline Phosphatase 38, Total Protein 5.2 L, Albumin 3.0 L D, Globulin 2.2, Albumin/Globulin Ratio 1.4 12/18/22 12:00: WBC 5.6, RBC 3.05 L D, Hgb 8.9 L, Hct 27.1 L, MCV 88.8, MCH 29.2, MCHC 32.9, RDW 14.8, Plt Count 297, MPV 7.8, Neut % (Auto) 60.6, Lymph % (Auto) 29.7, [place] % (Auto) 8.5, Eos % (Auto) 0.8, Baso % (Auto) 0.5, Neut # (Auto) 3.4, Lymph # (Auto) 1.7, [place] # (Auto) 0.5, Eos # (Auto) 0.0, Baso # (Auto) 0.0 I & O for Last 24 hours: Intake & Output 12/15/22 12/16/22 12/17/22 12/18/22 23:59 23:59 23:59 23:59 Intake Total 610 / 910 540 / 540 Output Total 600 / 600 700 / 700 Balance 10 -160 / -160 Weight 42.836 kg 43.772 kg Constitutional Constitutio
--- NOTE | 2022-12-21 13:37 | CARE MANAGER ---
Called to discuss recent discharge with patient. She hadn't been able to schedule her cardiology appt, so I called and scheduled it. No other complaints voiced at time of call.
== END 2022-12-18 15:19 | disposition home or self-care (01) ==
LOC: ER 13:33 → 2ND 14:03
PROVIDERS: Surgery; Admitting Provider Student in an Organized Health Care Education/Training Program; Emergency Provider Student in an Organized Health Care Education/Training Program; PCP Family Medicine; Visit Provider Student in an Organized Health Care Education/Training Program
PROC: 0DJ08ZZ Inspection of Upper Intestinal Tract, Via Natural or Artificial Opening Endoscopic (ICD-10-PCS; CPT 43235; principal; 2022-12-18 07:30)
DX: Z79.01 Long term (current) use of anticoagulants; N18.9 Chronic kidney disease, unspecified; I25.10 Atherosclerotic heart disease of native coronary artery without angina pectoris; K22.2 Esophageal obstruction; K44.9 Diaphragmatic hernia without obstruction or gangrene; Z20.822 Contact with and (suspected) exposure to COVID-19; I48.0 Paroxysmal atrial fibrillation; D62 Acute posthemorrhagic anemia; Z79.899 Other long term (current) drug therapy
CPT/HCPCS: 43239; G0378; 36415; 36430; 71045; 71260; 74177; 80053; 81001; 82272; 82962; 83735; 84100; 84484; 85014; 85018; 85025; 85610; 85730; 86850; 87635; 87636; 88305; 93005; 99285; C9803; G0328; P9016; Q9967; U0003; U0005

== ENCOUNTER → 2022-12-23 20:52 | Outpatient (CLI) | payer MEDICARE, BC, SELFPAY ==
[2022-12-23 19:46] LABS: Hematocrit 28.1 % (37.0-47.0); Hemoglobin 9.1 g/dL (12.2-16.2)
== END ==
PROVIDERS: PCP Family Medicine; Visit Provider Family Medicine
DX: D62 Acute posthemorrhagic anemia (principal); K92.2 Gastrointestinal hemorrhage, unspecified; Z79.01 Long term (current) use of anticoagulants; Z51.81 Encounter for therapeutic drug level monitoring
CPT/HCPCS: 85014; 85018

== ENCOUNTER → 2022-12-29 14:00 | Outpatient (CLI) | payer MEDICARE, BC, SELFPAY | PROVIDERS: PCP Family Medicine; Visit Provider Surgery | DX: K92.2 Gastrointestinal hemorrhage, unspecified (principal) ==

== ENCOUNTER → 2023-01-03 23:49 | Outpatient (CLI) | payer MEDICARE, BC, SELFPAY ==
[2023-01-03 19:21] LABS: Basophils % 0.4 % (0.1-2.0); Eosinophils # 0.1 K/mm3 (0.0-0.4); Eosinophils % 1.1 % (0.1-12.0); Hematocrit 28.5 % (37.0-47.0); Hemoglobin 8.7 g/dL (12.2-16.2); Lymphocytes # 1.7 K/mm3 (0.7-4.5); Lymphocytes % 31.1 % (10-50); Mean Corpuscular HGB Conc 30.5 g/dL (31.8-35.4); Mean Corpuscular Hemoglobin 27.2 pg (27.0-31.2); Mean Platelet Volume 8.2 fl (7.4-10.4); Monocytes # 0.6 K/mm3 (0.1-1.0); Monocytes % 11.1 % (1.7-9.3); Neutrophils % 56.3 % (37.0-80.0); Platelet Count 404 K/mm3 (142-424); Red Cell Distribution Width 15.7 % (11.5-17.5); White Blood Count 5.3 K/mm3 (4.8-10.8)
== END ==
PROVIDERS: PCP Family Medicine; Visit Provider Family Medicine
DX: M51.36 Other intervertebral disc degeneration, lumbar region (principal)
CPT/HCPCS: 85025

== ENCOUNTER → 2023-01-18 13:09 | Outpatient (CLI) | payer MEDICARE, BC, SELFPAY ==
[2023-01-18 18:40] LABS: MANUAL DIFFERENTIAL MANUAL DIFFERENTIAL (MANUAL DIFF)
[2023-01-18 18:58] LABS: Basophils % 0.4 % (0.1-2.0); Eosinophils # 0.1 K/mm3 (0.0-0.4); Hematocrit 30.2 % (37.0-47.0); Hemoglobin 9.4 g/dL (12.2-16.2); Lymphocytes # 1.8 K/mm3 (0.7-4.5); Lymphocytes % 30.7 % (10-50); Mean Corpuscular Hemoglobin 26.1 pg (27.0-31.2); Mean Corpuscular Volume 84.4 fl (81-99); Mean Platelet Volume 8.3 fl (7.4-10.4); Monocytes # 0.5 K/mm3 (0.1-1.0); Monocytes % 8.8 % (1.7-9.3); Neutrophils # 3.4 K/mm3 (1.8-7.8); Neutrophils % 59.1 % (37.0-80.0); Platelet Count 407 K/mm3 (142-424); Red Blood Count 3.58 M/mm3 (4.20-5.40); Red Cell Distribution Width 16.9 % (11.5-17.5); White Blood Count 5.7 K/mm3 (4.8-10.8)
[2023-01-18 19:20] LABS: C-Reactive Protein 0.6 mg/L (0-4)
[2023-01-18 20:08] LABS: Erythrocyte Sedimentation Rate 124 mm/hr (0-30)
[2023-01-18 20:20] LABS: Eosinophils % 1 % (0-3); Hypochromasia 2+; Lymphocytes % 35 % (10-50); Monocytes % 2 % (2-9); Neutrophils % 61 % (42-76); Ovalocytes 1+; Platelet Estimate Normal; Target Cells 1+; Total Cells Counted 100
== END ==
PROVIDERS: PCP Family Medicine; Visit Provider Family Medicine
DX: H53.9 Unspecified visual disturbance (principal); D64.9 Anemia, unspecified
CPT/HCPCS: 85007; 85014; 85018; 85048; 85049; 85651; 86140

== ENCOUNTER → 2023-03-11 23:43 | Outpatient (CLI) | payer MEDICARE, BC, SELFPAY ==
[2023-03-11 18:57] LABS: Hemoglobin 9.9 g/dL (12.2-16.2); Red Blood Count 3.94 M/mm3 (4.20-5.40); White Blood Count 7.1 K/mm3 (4.8-10.8)
[2023-03-11 18:58] LABS: Basophils % 0.4 % (0.1-2.0); Eosinophils # 0.1 K/mm3 (0.0-0.4); Eosinophils % 1.8 % (0.1-12.0); Hematocrit 31.9 % (37.0-47.0); Lymphocytes # 1.7 K/mm3 (0.7-4.5); Mean Corpuscular HGB Conc 31.1 g/dL (31.8-35.4); Mean Corpuscular Hemoglobin 25.2 pg (27.0-31.2); Mean Corpuscular Volume 81.1 fl (81-99); Mean Platelet Volume 8.2 fl (7.4-10.4); Monocytes # 0.7 K/mm3 (0.1-1.0); Monocytes % 10.3 % (1.7-9.3); Neutrophils # 4.5 K/mm3 (1.8-7.8); Neutrophils % 63.5 % (37.0-80.0); Platelet Count 407 K/mm3 (142-424); Red Cell Distribution Width 20.9 % (11.5-17.5)
[2023-03-11 19:32] LABS: Chloride 105 mmol/L (98-107)
[2023-03-11 19:33] LABS: Potassium 4.4 mmoL/L (3.5-5.1); Sodium 141 mmol/L (136-145)
[2023-03-11 19:35] LABS: Alanine Aminotransferase 20 U/L (12-78); Aspartate Amino Transferase 30 U/L (14-36); Blood Urea Nitrogen 21 mg/dl (7-17); Estimated Glomerular Filt Rate 33 ml/min (>60); GFR (African American) 40 ML/MIN (>60)
[2023-03-11 19:36] LABS: Albumin Level 3.8 g/dl (3.5-5.0); Albumin/Globulin Ratio 1.2 (1.1-1.8); Alkaline Phosphatase 96 U/L (38-126); Anion Gap 14.4 mEq/L (5-15); Bilirubin,Total 0.5 mg/dl (0.2-1.3); Calcium 10.3 mg/dl (8.4-10.2); Carbon Dioxide 26 mmol/L (22.0-30.0); Globulin 3.2 g/dL (1.3-3.2); Glucose 89 mg/dl (74-100); Iron 43 ug/dL (37-170)
[2023-03-11 19:45] LABS: Total Iron Binding Capacity 412 ug/dL (265-497)
[2023-03-11 20:06] LABS: Thyroid Stimulating Hormone 1.96 uIU/mL (0.465-4.68)
== END ==
PROVIDERS: PCP Family Medicine; Visit Provider Family Medicine
DX: D64.9 Anemia, unspecified (principal); E61.1 Iron deficiency
CPT/HCPCS: 80053; 83540; 83550; 84443; 85025

== ENCOUNTER → 2023-05-06 23:30 | Outpatient (CLI) | payer MEDICARE, BC, SELFPAY ==
[2023-05-06 18:43] LABS: Basophils % 0.3 % (0.1-2.0); Eosinophils % 0.5 % (0.1-12.0); Hemoglobin 10.3 g/dL (12.2-16.2); Lymphocytes # 1.7 K/mm3 (0.7-4.5); Lymphocytes % 27.7 % (10-50); Mean Corpuscular HGB Conc 33.1 g/dL (31.8-35.4); Mean Corpuscular Hemoglobin 26.7 pg (27.0-31.2); Mean Corpuscular Volume 80.4 fl (81-99); Mean Platelet Volume 9.3 fl (7.4-10.4); Monocytes # 0.6 K/mm3 (0.1-1.0); Monocytes % 10.2 % (1.7-9.3); Neutrophils # 3.6 K/mm3 (1.8-7.8); Neutrophils % 61.2 % (37.0-80.0); Platelet Count 278 K/mm3 (142-424); Red Blood Count 3.86 M/mm3 (4.20-5.40); Red Cell Distribution Width 22.5 % (11.5-17.5); White Blood Count 5.9 K/mm3 (4.8-10.8)
[2023-05-06 19:40] LABS: Thyroid Stimulating Hormone 6.01 uIU/mL (0.465-4.68)
== END ==
PROVIDERS: PCP Family Medicine; Visit Provider Family Medicine
DX: M51.36 Other intervertebral disc degeneration, lumbar region (principal); Z00.00 Encounter for general adult medical examination without abnormal findings; E78.2 Mixed hyperlipidemia
CPT/HCPCS: 84443; 85025

== ENCOUNTER → 2023-07-08 23:34 | Outpatient (CLI) | payer MEDICARE, BC, SELFPAY ==
[2023-07-08 18:42] LABS: Basophils % 0.6 % (0.1-2.0); Eosinophils # 0.1 K/mm3 (0.0-0.4); Eosinophils % 1.2 % (0.1-12.0); Hematocrit 31.9 % (37.0-47.0); Hemoglobin 10.1 g/dL (12.2-16.2); Lymphocytes # 1.7 K/mm3 (0.7-4.5); Lymphocytes % 34.8 % (10-50); Mean Corpuscular HGB Conc 31.5 g/dL (31.8-35.4); Mean Corpuscular Volume 85.7 fl (81-99); Mean Platelet Volume 8.9 fl (7.4-10.4); Monocytes # 0.5 K/mm3 (0.1-1.0); Monocytes % 9.9 % (1.7-9.3); Neutrophils # 2.6 K/mm3 (1.8-7.8); Neutrophils % 53.5 % (37.0-80.0); Platelet Count 341 K/mm3 (142-424); Red Blood Count 3.73 M/mm3 (4.20-5.40); Red Cell Distribution Width 19.2 % (11.5-17.5); White Blood Count 4.9 K/mm3 (4.8-10.8)
[2023-07-08 19:35] LABS: Thyroid Stimulating Hormone 1.99 uIU/mL (0.465-4.68)
== END ==
PROVIDERS: PCP Family Medicine; Visit Provider Family Medicine
DX: E78.2 Mixed hyperlipidemia (principal); M51.36 Other intervertebral disc degeneration, lumbar region; Z79.899 Other long term (current) drug therapy
CPT/HCPCS: 84443; 85025

== ENCOUNTER 2023-08-22 21:09 | Outpatient (CLI) | payer MEDICARE, BC, SELFPAY ==
[2023-08-22 18:57] LABS: Basophils # 0.1 K/mm3 (0-0.2); Basophils % 0.7 % (0.1-2.0); Eosinophils # 0.1 K/mm3 (0.0-0.4); Hematocrit 32.1 % (37.0-47.0); Hemoglobin 10.2 g/dL (12.2-16.2); Lymphocytes # 1.4 K/mm3 (0.7-4.5); Lymphocytes % 21.4 % (10-50); Mean Corpuscular HGB Conc 31.8 g/dL (31.8-35.4); Mean Corpuscular Hemoglobin 27.7 pg (27.0-31.2); Mean Corpuscular Volume 87.1 fl (81-99); Mean Platelet Volume 8.1 fl (7.4-10.4); Monocytes # 0.6 K/mm3 (0.1-1.0); Monocytes % 9.1 % (1.7-9.3); Neutrophils # 4.4 K/mm3 (1.8-7.8); Neutrophils % 67.7 % (37.0-80.0); Platelet Count 369 K/mm3 (142-424); Red Blood Count 3.69 M/mm3 (4.20-5.40); White Blood Count 6.5 K/mm3 (4.8-10.8)
[2023-08-22 20:56] LABS: Iron 32 ug/dL (37-170)
[2023-08-22 21:05] LABS: Total Iron Binding Capacity 421 ug/dL (265-497)
== END 2023-08-22 23:59 ==
LOC: LAB.DROPOF 21:09
PROVIDERS: PCP Family Medicine; Visit Provider Family Medicine
DX: D62 Acute posthemorrhagic anemia (principal); R53.83 Other fatigue
CPT/HCPCS: 83540; 83550; 85025

== ENCOUNTER 2023-11-25 18:00 | Outpatient (CLI) | payer MEDICARE, BC, SELFPAY ==
[2023-11-25 18:36] LABS: Basophils % 0.6 % (0.1-2.0); Eosinophils % 0.7 % (0.1-12.0); Hematocrit 33.3 % (37.0-47.0); Hemoglobin 10.2 g/dL (12.2-16.2); Lymphocytes # 1.4 K/mm3 (0.7-4.5); Lymphocytes % 24.2 % (10-50); Mean Corpuscular HGB Conc 30.5 g/dL (31.8-35.4); Mean Corpuscular Volume 88.5 fl (81-99); Mean Platelet Volume 8.4 fl (7.4-10.4); Monocytes # 0.5 K/mm3 (0.1-1.0); Monocytes % 8.3 % (1.7-9.3); Neutrophils # 3.9 K/mm3 (1.8-7.8); Neutrophils % 66.1 % (37.0-80.0); Platelet Count 437 K/mm3 (142-424); Red Blood Count 3.76 M/mm3 (4.20-5.40); Red Cell Distribution Width 16.7 % (11.5-17.5); White Blood Count 5.9 K/mm3 (4.8-10.8)
[2023-11-25 18:51] LABS: Alanine Aminotransferase 20 U/L (12-78); Albumin/Globulin Ratio 1.3 (1.1-1.8); Alkaline Phosphatase 71 U/L (38-126); Anion Gap 10.1 mEq/L (5-15); Aspartate Amino Transferase 29 U/L (14-36); Bilirubin,Total 0.5 mg/dl (0.2-1.3); Blood Urea Nitrogen 17 mg/dl (7-17); Calcium 9.6 mg/dl (8.4-10.2); Carbon Dioxide 29 mmol/L (22.0-30.0); Chloride 106 mmol/L (98-107); Estimated Glomerular Filt Rate 53 ml/min (>60); GFR (African American) 64 ML/MIN (>60); Glucose 104 mg/dl (74-100); Potassium 4.1 mmoL/L (3.5-5.1); Sodium 141 mmol/L (136-145)
[2023-11-25 19:21] LABS: Thyroid Stimulating Hormone 2.69 uIU/mL (0.465-4.68)
[2023-11-25 20:05] LABS: Iron 60 ug/dL (37-170)
[2023-11-25 20:14] LABS: Total Iron Binding Capacity 421 ug/dL (265-497)
== END 2023-11-25 23:59 | disposition home or self-care (01) ==
LOC: LAB.DROPOF 11-26 09:21
PROVIDERS: PCP Family Medicine; Visit Provider Family Medicine
DX: E78.5 Hyperlipidemia, unspecified (principal); E03.9 Hypothyroidism, unspecified; Z79.899 Other long term (current) drug therapy
CPT/HCPCS: 80053; 83540; 83550; 84443; 85025

== ENCOUNTER 2023-12-04 12:20 | Emergency (ER) | payer MEDICARE, BC, SELFPAY ==
[2023-12-04] VITALS (7 sets, daily range): BP systolic 112–126; BP diastolic 56–77; PULSE 66–74; RESP 13–20; TEMP 36.9; O2SAT 96–99; BMI 21.2
[2023-12-04 12:56] LABS: Coronavirus 19, PCR Not Detected (NotDetected); Influenza A, PCR Not Detected (NotDetected); Influenza B, PCR Not Detected (NotDetected)
--- NOTE | 2023-12-04 13:13 | XR_ITS ---
PROCEDURE INFORMATION: Exam: XR Chest Exam date and time: 12/04/2023 1:25 PM Age: 83 years old Clinical indication: Cough TECHNIQUE: Imaging protocol: Radiologic exam of the chest. Views: 1 view. COMPARISON: CT CHEST W CON 12/17/2022 1:50 PM FINDINGS: Lungs: Unremarkable. No consolidation. Pleural spaces: Unremarkable. No pleural effusion. No pneumothorax. Heart/Mediastinum: Moderate hiatal hernia. No cardiomegaly. Bones/joints: Unremarkable. IMPRESSION: No acute findings.
--- NOTE | 2023-12-04 13:21 | ED_ITS ---
Discharge Plan Disposition Patient Disposition: Home, Self-Care Prescriptions Prescriptions: New azithromycin 250 mg tablet See Rx Instructions .ROUTE .COMPLEX Qty: 6 0RF Rx Instructions: For 250 mg dose pack: take 500 mg today (day 1), then 250 mg for 4 days (days 2-5) benzonatate 100 mg capsule 100 mg PO TID PRN (Reason: cough) 5 Days Qty: 20 0RF amoxicillin-pot clavulanate 875-125 mg tablet 1 tab PO BID 7 Days Qty: 14 0RF No Action meclizine 25 mg tablet 25 mg PO BID PRN (Reason: dizziness) Qty: 30 3RF senna 8.6 mg capsule 8.6 mg PO DAILY PRN (Reason: constipation) Qty: 30 0RF rosuvastatin 20 mg tablet 20 mg PO DAILY Qty: 90 3RF Eliquis 2.5 mg tablet 2.5 mg PO BID Qty: 30 12RF prochlorperazine maleate [Compazine] 5 mg tablet 5 mg PO BID PRN (Reason: nausea and vomiting) Qty: 30 1RF methylprednisolone acetate [Depo-Medrol] 80 mg/mL suspension 80 mg IM ONCE Qty: 1 0RF hydrocodone-acetaminophen 5-325 mg tablet See Rx Instructions .ROUTE .COMPLEX Qty: 45 0RF Rx Instructions: 1 po q 12-24 hours prn back pain cholecalciferol (vitamin D3) 125 mcg (5,000 unit) capsule 125 mcg PO DAILY Qty: 90 3RF acyclovir 200 mg capsule 200 mg PO TID Qty: 30 0RF Pro Fe 180 mg iron capsule 180 mg PO DAILY Qty: 30 0RF levothyroxine 50 mcg tablet See Rx Instructions .ROUTE .COMPLEX Qty: 90 0RF Dose Instruction: TAKE 1 TABLET BY MOUTH EVERY DAY Rx Instructions: TAKE 1 TABLET BY MOUTH EVERY DAY furosemide [Lasix] 20 mg tablet 20 mg PO Q OTHER DAY PRN (Reason: Edema ) Qty: 30 1RF methylprednisolone [Medrol (Harpal)] 4 mg tablets,dose pack See Rx Instructions PO PER PKG DIR Qty: 21 0RF Rx Instructions: PO PER PKG DIR latanoprost 0.005 % drops 1 drp ophthalmic (eye) HS Patient Comments: Instill 1 drop into both eyes every evening ondansetron HCl 4 mg tablet 4 mg PO TIDP PRN (Reason: Nausea) Referrals Follow up/Referrals: Luis Fernando Jain MD [Primary Care Provider] - See instructions Activity Restrictions/Add. Instructions Additional Instructions/Restrictions: Your symptoms are most likely secondary to a viral upper respiratory infection however on your chest x-ray there was a small area on the right lower aspect that I discussed with you could be an early pneumonia. Given your age and comorbidities we will err on the side of caution and prescribe antibiotics. I expect your symptoms to resolve within the next week. Return with any significant worsening of your symptoms such as shortness of breath high fevers or other concerns Clinical Impressions Clinical Impression: CAP (community acquired pneumonia) Instructions Patient Instructions: DI for Acute Bronchitis Discharge ED Provider: Karen Mendoza General Adult HPI General Chief complaint: Upper Respiratory Infection Stated complaint: cough, congestion,fever Time Seen by Provider: 12/04/23 12:51 Mode of Arrival: Wheelchair Source of Information: Patient Limitations: No Limitations Description of Symptoms (Recalled from ER Triage Doc. by RN): pt presents to ED with c/o sore throat, congestion, headache. symptoms ongoing since . pt reports she took an at home covid test and it was negative. History of Present Illness HPI narrative: Patient is an 83-year-old female here with multiple complaints including sore throat congestion headache generalized malaise since . Had a home COVID test which was negative. She presents to the emergency department as she is concerned she has pneumonia. Related Data Home Medications Medication Instructions Recorded Confirmed latanoprost 0.005 % eye drops 1 drp ophthalmic (eye) HS Glaucoma 12/17/22 11/25/23 ondansetron HCl 4 mg tablet 4 mg PO TIDP PRN Nausea 12/17/22 11/25/23 Previous Rx's Medication Instructions Recorded prochlorperazine maleate 5 mg 5 mg PO BID PRN nausea and 12/23/22 tablet (Compazine) vomiting #30 tabs meclizine 25 mg tablet 25 mg PO BID PRN dizziness #30 tabs 03/11/23 sennosides 8.6 mg capsule (senna) 8.6 mg PO DAILY PRN constipation 03/11/23 #30 caps rosuvastatin 20 mg tablet 20 mg PO DAILY Cholesterol #90 tabs 07/08/23 acyclovir 200 mg capsule 200 mg PO TID #30 caps 08/03/23 cholecalciferol (vitamin D3) 125 125 mcg PO DAILY #90 caps 08/22/23 mcg (5,000 unit) capsule hydrocodone 5 mg-acetaminophen 325 See Rx Instructions .Route 08/22/23 mg tablet .COMPLEX #45 tabs polysaccharide iron complex 180 mg 180 mg PO DAILY #30 caps 08/29/23 iron capsule (Pro Fe) levothyroxine 50 mcg tablet See Rx Instructions .Route 11/10/23 .COMPLEX #90 tabs apixaban 2.5 mg tablet (Eliquis) 2.5 mg PO BID #30 tabs 11/25/23 furosemide 20 mg tablet (Lasix) 20 mg PO Q OTHER DAY PRN Edema 11/28/23 #30 tabs methylprednisolone 4 mg tablets in See Rx Instructions PO PER PKG DIR 12/02/23 a dose pack (Medrol (Harpal)) #21 tabs amoxicillin 875 mg-potassium 1 tab PO BID 7 days #14 tabs 12/04/23 clavulanate 125 mg tablet azithromycin 250 mg tablet See Rx Instructions PO .COMPLEX #6 12/04/23 tabs benzonatate 100 mg capsule 100 mg PO TID PRN cough 5 days #20 12/04/23 caps Allergies Allergy/AdvReac Type Severity Reaction Status Date / Time sulfamethoxazole Allergy Severe Unknown Verified 11/25/23 10:51 [From Bactrim] allergy reaction trimethoprim [From Bactrim] Allergy Severe Unknown Verified 11/25/23 10:51 allergy reaction nitrofurantoin AdvReac Verified 11/25/23 10:51 [From Macrobid] From CIPRO Allergy Unknown NERVOUS,HIV Uncoded 11/25/23 10:51 ES From FLAGYL Allergy Unknown Uncoded 11/25/23 10:51 From TETANUS AND DIPHTHERIA Allergy Unknown ANAPHYLAXIS Uncoded 11/25/23 10:51 TOXOIDS A... SULFA (SULFONAMIDE) Allergy Unknown UNKNOWN Uncoded 11/25/23 10:51 [facility] Disclaimer: The information contained in this section may have been updated after the patient was seen, as this information can be updated by other users. Medical History Fatigue Hiatal hernia Fatigue Abnormal electrocardiogram [ECG] [EKG] Hyperlipidemia Decreased mobility Thyroid tumor, benign Self-catheterizes urinary bladder UTI (urinary tract infection) Hypotension HLD (hyperlipidemia) Hypothyroidism Acute GI bleeding Chronic anticoagulation PAF (paroxysmal atrial fibrillation) CAD (coronary artery disease), [place] coronary artery Surgical History History of partial hysterectomy S/P breast biopsy, left Presence of stent in coronary artery Family History Other No significant family history Social History Smoking Status: Never smoker alcohol intake: never substance use type: denies use current occupational status: other Travel in the last 8 weeks: None household members: none housing: house ROS Obtained: Yes All systems reviewed & no additional complaints except as documented Physical Exam General General appearance: alert and in no apparent distress ENT ENT exam: Present normal exam, normal oropharynx and TM's normal bilaterally Neck Neck exam: Present normal inspection and full ROM; Absent lymphadenopathy Respiratory Respiratory exam: Present normal lung sounds bilaterally and other (Oxygen saturation is 99% on room air nonfocal); Absent respiratory distress Cardiovascular Cardiovascular exam: Present regular rate and normal rhythm Neurological Exam Neurological exam: Present alert and oriented X3 Medical Decision Making Massimo Inquiry Pt receiving controlled substance: No Vital Signs: 12/04/23 12:21 12/04/23 12:26 12/04/23 12:30 Temperature 98.4 F Temperature Source Oral Pulse Rate 69 70 Pulse Rate [Left Radial] 69 Respiratory Rate 13 Blood Pressure 126/64 124/58 L Blood Pressure [Right Arm] 126/64 Blood Pressure Mean [Right Arm] 84 Blood Pressure Source Blood Pressure Position 02 Sat by Pulse Oximetry 99 99 99 Oxygen Delivery Method Room Air 12/04/23 13:00 12/04/23 13:45 12/04/23 14:00 Temperature Temperature Source Pulse Rate 68 67 70 Pulse Rate [Left Radial] Respiratory Rate Blood Pressure 121/59 L 112/58 L 115/61 Blood Pressure [Right Arm] Blood Pressure Mean [Right Arm] Blood Pressure Source Blood Pressure Position 02 Sat by Pulse Oximetry 98 99 98 Oxygen Delivery Method Room Air 12/04/23 14:39 12/04/23 14:39 Temperature 98.4 F 98.4 F Temperature Source Oral Oral Pulse Rate 74 66 Pulse Rate [Left Radial] Respiratory Rate 20 14 Blood Pressure 120/77 119/56 L Blood Pressure [Right Arm] Blood Pressure Mean [Right Arm] Blood Pressure Source Automatic Cuff Blood Pressure Position Sitting 02 Sat by Pulse Oximetry Oxygen Delivery Method Room Air Room Air Lab Data Lab Results 12/04/23 12:52: SARS-CoV-2 (PCR) Not detected, Influenza A Untype (PCR) Not detected, Influenza Type B (PCR) Not detected Orders (Tests/Meds): ORDERS Category Date Time Status XR chest portable Stat Exams 12/04/23 13:13 Completed Rapid PCR Covid and Flu A/B Stat Lab 12/04/23 12:52 Completed Medical Decision Narrative: Very well-appearing 83-year-old female presenting today with above symptoms consistent most likely with viral syndrome. COVID and flu rapid test have been sent. Two-view chest x-ray has been performed. From the head and neck and cardiopulmonary exam standpoint it is normal. Supportive care most likely. Will discuss after her initial workup is complete. Critical Care Critical Care Time Critical Care Time: No
== END 2023-12-04 14:41 | disposition home or self-care (01) ==
PROVIDERS: Emergency Provider Student in an Organized Health Care Education/Training Program; PCP Family Medicine
DX: J18.9 Pneumonia, unspecified organism (principal); R51.9 Headache, unspecified; R05.9 Cough, unspecified; R07.0 Pain in throat
CPT/HCPCS: 71045; 87636; 99283

== ENCOUNTER 2024-12-28 09:08 | Outpatient (CLI) | payer MEDICARE, BC, SELFPAY ==
[2024-12-28 17:43] LABS: Microscopic, Urine URINE MICROSCOPIC (MICROSCOPIC)
[2024-12-28 17:54] LABS: Basophils # 0.1 K/mm3 (0-0.2); Basophils % 0.9 % (0.1-2.0); Eosinophils # 0.1 Kmm3 (0.0-0.4); Eosinophils % 0.8 % (0.1-12.0); Hematocrit 34.9 % (37.0-47.0); Immature Granulocytes # 0.02 10^3uL; Immature Granulocytes % 0.3 %; Lymphocytes % 30.5 % (10-50); Mean Corpuscular HGB Conc 31.5 g/dL (31.8-35.4); Mean Corpuscular Hemoglobin 26.8 pg (27.0-31.2); Mean Corpuscular Volume 84.9 fl (81-99); Mean Platelet Volume 10.5 fl (7.4-10.4); Monocytes # 0.5 K/mm3 (0.1-1.0); Monocytes % 7.8 % (1.7-9.3); Neutrophils # 3.8 K/mm3 (1.8-7.8); Neutrophils % 59.7 % (37.0-80.0); Nucleated Red Blood Cells # 0 10^3/uL; Nucleated Red Blood Cells % 0 %; Platelet Count 422 K/mm3 (142-424); Red Blood Count 4.11 M/mm3 (4.20-5.40); Red Cell Distribution Width 15.9 % (11.5-17.5); Red Cell Distribution Width-SD 48.6 fL; White Blood Count 6.4 K/mm3 (4.8-10.8)
[2024-12-28 18:05] LABS: Appearance,Urine SL CLOUDY (Clear); Bilirubin,Urine Negative (Negative); Blood, Urine 1+ (Negative); Color,Urine YELLOW (Yellow); Glucose,Urine (UA) Negative (Negative); Ketones,Urine Negative (Negative); Leukocyte Esterase,Urine 3+ (Negative); Nitrate,Urine POSITIVE (Negative); Protein,Urine Negative (Negative); Specific Gravity, Urine 1.015 (1.005-1.030); Urobilinogen,Urine 0.2 EU/dl (0.2)
[2024-12-28 18:29] LABS: Alanine Aminotransferase 69 U/L (12-78); Albumin Level 3.9 g/dl (3.5-5.0); Albumin/Globulin Ratio 1.1 (1.1-1.8); Alkaline Phosphatase 74 U/L (38-126); Anion Gap 8.3 mEq/L (5-15); Aspartate Amino Transferase 140 U/L (14-36); Bilirubin,Total 0.8 mg/dl (0.2-1.3); Blood Urea Nitrogen 18 mg/dl (7-17); Calcium 10.1 mg/dl (8.4-10.2); Carbon Dioxide 28 mmol/L (22.0-30.0); Chloride 104 mmol/L (98-107); Estimated Glomerular Filt Rate 53 ml/min (>60); GFR (African American) 64 ML/MIN (>60); Globulin 3.6 g/dL (1.3-3.2); Glucose 95 mg/dl (74-100); Potassium 4.3 mmoL/L (3.5-5.1); Sodium 136 mmol/L (136-145); Total Protein,Serum 7.5 g/dl (6.3-8.2)
[2024-12-28 18:34] LABS: Bacteria,Urine 4+ /lpf; Squamous Epithelial Cell,Urine Occasional #/hpf (0-5); WBC,Urine TNTC #/hpf (0-3)
[2024-12-28 19:08] LABS: Thyroid Stimulating Hormone 2.11 uIU/mL (0.465-4.68)
[2024-12-28 19:13] LABS: Ferritin 12.1 ng/ml (11.1-264)
[2024-12-28 19:34] LABS: Vitamin B12 > 1000 pg/mL (239-931)
[2024-12-28 19:38] LABS: Folate > 20.00 ng/mL
[2024-12-28 19:59] LABS: Iron 99 ug/dL (37-170)
[2024-12-28 20:08] LABS: Total Iron Binding Capacity 365 ug/dL (265-497)
--- OUTSIDE RECORDS SUMMARY | 2024-12-31 09:12 | XMS_ITS | Clinical Summary ---
Author Organization [facility] Address [address] [place] [id number] Phone Care Team Providers Care Poultry Scalder Name Role Phone Christofer BUTTERFIELD, [phone] Conditions or Problems Problem Name Problem Code Onset Date Status Entry Date Provider Comment Standard Description Annotate SCOLIOSIS, IDIOPATHIC THORACOLUMBA R M41.25 (ICD-10-CM ) 04/11 Active 04/11 Nadeen Dowd DRAPERY HEAD FORMER Other idiopathic scoliosis, thoracolumbar region LOWER BACK PAIN 206783178 (SNOMED CT) 04/11 Active 04/11 Nadeen Dowd NP Low back pain TIA (transient ischemic attack) G45.9 (ICD-10-CM ) Active 04/07 Lisa Iraheta MA Transient cerebral ischemic attack, unspecified Imported from [facility]: [facility] ( at 11:12:46 AM) Hypothyroid 67923078 (SNOMED CT) 10/12 Active 04/07 Lisa Iraheta MA Hypothyroidism Imported from [facility]: [facility] ( at 11:12:46 AM) Coronary artery disease involving tangirnaq coronary artery of tangirnaq heart without angina pectoris I25.10 (ICD-10-CM ) 10/12 Active 04/07 Lisa Iraheta MA Atherosclerotic heart disease of tangirnaq coronary artery without angina pectoris Imported from [facility]: [facility] ( at 11:12:46 AM) LOW BACK PAIN 655713110 (SNOMED CT) 09/30 Active 09/30 Patriciaelvia Resendezon Low back pain Medications Medication Instructions Start Date Stop Date Generic Name [facility] Provider ROSUVASTATIN CALCIUM 20 MG TABS Take by mouth daily. rosuvastatin (CRESTOR) 20 mg Tablet [id number] Lisa Iraheta MA POTASSIUM CHLORIDE ER 20 MEQ CR-TABS Take 20 mEq by mouth 3 times daily (with meals). potassium chloride 20 mEq Tablet Sustained Release [id number] Lisa Iraheta MA PANTOPRAZOLE SODIUM 40 MG TBEC Take 40 mg by mouth daily. pantoprazole (PROTONIX) 40 mg Tablet, Delayed Release (E.C.) [id number] Lisa Iraheta MA MECLIZINE HCL 12.5 MG TABS Take 12.5 mg by mouth 3 times daily as needed. meclizine (ANTIVERT) 12.5 mg tablet [id number] Lisa Iraheta MA LEVOTHYROXINE SODIUM 50 MCG TABS Take 50 mcg by mouth daily. levothyroxine (LEVOXYL) 50 mcg PO tablet [id number] Lisa Iraheta MA LATANOPROST 0.005 % SOLN null latanoprost (XALATAN) 0.005 % Drops [id number] Lisa Iraheta MA IPRATROPIUM BROMIDE 0.03 % SOLN 2 sprays to each side of the nose BID ipratropium (ATROVENT) 0.03 % nasal spray [id number] Lisa Iraheta MA IPRATROPIUM BROMIDE 0.03 % SOLN 2 sprays to each side of the nose BID ipratropium (ATROVENT) 0.03 % nasal spray [id number] Lisa Iraheta MA DULOXETINE HCL 20 MG CPEP Take 20 mg by mouth daily. DULoxetine (CYMBALTA) 20 mg Capsule, Delayed Release(E.C.) [id number] Lisa Iraheta MA DOXYCYCLINE HYCLATE 100 MG CAPS Take 1 Cap (100 mg total) by mouth 2 times daily. doxycycline (VIBRAMYCIN) 100 mg capsule [id number] Lisa Iraheta MA CLOPIDOGREL BISULFATE 75 MG TABS null clopidogreL (PLAVIX) 75 mg tablet [id number] Lisa Iraheta MA CILOSTAZOL 100 MG TABS Take 1 Tab by mouth 2 times daily. cilostazol (PLETAL) 100 mg tablet [id number] Lisa Iraheta MA CALCIUM CARBONATE/VITAMI N D3 (VITAMIN D-3 PO) null CALCIUM CARBONATE/VITAMI N D3 (VITAMIN D-3 PO) Lisa Iraheta MA B complex with C 20-folic acid (NEPHROCAPS) 1 mg Capsule Take 1 Cap by mouth daily. B complex with C 20-folic acid (NEPHROCAPS) 1 mg Capsule Lisa Iraheta MA Medications Administered No information available. Allergies, Adverse Reactions, Alerts Allergy Name Reaction Description Start Date Severity Status Provider TRIMETHOPRIM Mild Lisa Iraheta MA TETANUS VACCINES AND TOXOID Other (See Comments) Mild Lisa Iraheta MA TETANUS AND DIPHTHERIA TOXOIDS, ADSORBED, ADULT Mild Lisa Iraheta M A SULFAMETHOXAZOLE-TRIMET HOPRIM Anaphylaxis Mild Lisa Iraheta M A SULFA (SULFONAMIDE ANTIBIOTICS) Mild Lisa Iraheta M A PROCAINE HCL Mild Lisa Iraheta MA PREDNISONE Swelling Mild Lisa P ruitt MA POMEGRANATE Swelling Mild Lisa Iraheta MA PENICILLINS Mild Lisa Iraheta MA NOVACARE Mild Lisa Pr uitt MA IODINATED CONTRAST MEDIA Other (See Comments) Mild Lisa Iraheta MA HYDROCODONE-ACETAMINOPH EN Mild Lisa Iraheta M A GABAPENTIN Mild Lisa P ruitt MA DULOXETINE Swelling Mild Lisa P ruitt MA DOXYCYCLINE Mild Lisa Iraheta MA DIPHENHYDRAMINE HCL Swelling Mild Lisa Iraheta MA DIATRIZOATE LEROY-DIATRIZOAT SOD Mild Lisa Pr uitt MA CLARITHROMYCIN Swelling Mild Brian na Iraheta MA CIPROFLOXACIN Nausea And Vomiting Mild Lisa Iraheta MA CEPHALEXIN Mild Lisa P ruitt MA AMOXICILLIN-POT CLAVULANATE Mild Lisa Iraheta M A ADHESIVE TAPE-SILICONES Swelling Mild Lisa Myrtle MA Results No information available. Plan of Care Type Date Detail Pending order X-ray Scoliosis - Standing Pending order X-ray Lumbar AP and Lateral Pending order X-Ray Thoracic A P and Lateral Pending order PT Order Pending order Breg Horizon 637 LSO Procedures Code Procedure Name Date Entry Date [facility]-[id number] Pneumonia Vaccine Previously Received 13/04/18 [id number] MRI Lumbar Spine Vital Signs Date Name Value Unit Description BMI (Body Mass Index) 21.41 kg/m2 Bod y Mass Index (Ratio) Height 59 [in_us] height E&M Weight Measured 106 [lb_av] weight E& M Weight Measured 106 [lb_av] weight E& M Immunizations No information available. Advance Directives No information available.
--- OUTSIDE RECORDS SUMMARY | 2024-12-31 09:12 | XMS_ITS | Encounter Summary ---
Author Organization [facility] Address [address] [place] [address] Phone Care Team Providers Care Vice President Of Instruction Name Role Phone Pcp, Pending Only MD Primary Care Provider [phone] Reason for Visit * Reason Comments Patient Question Encounter Details Date Type Department Care Team (Late st Contact Info) Description 01/05/2024 Telephone [facility] [address] [place] [address] Delon Cummings MD [facility] [place] [address] Social History Tobacco Use Types Packs/Day Years Used Date Smoking Tobacco: Never Smokeless Tobacco: Never Alcohol Use Standard Drinks/Week Comments No 0 (1 standard drink = 0.6 oz pur e alcohol) Food Insecurities Answer Date Recorded Worried about running out of food Not on file 08/13/2023 Food Bought Not on file 08/13/2023 Housing/Utilities Answer Date Recorded Worried about losing home Not on file 2023 Stayed outside house Not on file 08/13/2023 Unable to get utilities Not on file 08/13/19 Interpersonal Safety Answer Date Record ed Feel physically or emotionally unsafe where curr ently live Not on file 08/13/2023 Harm by anyone Not on file 08/13/2023 Emotionally Harmed Not on file 08/13/2023 Transportation Answer Date Recorded Worried about transportation Not on file Comments Unknown Sex and Gender Information Value Date Recorded Sex Assigned at Not on file Legal Sex Female 7:17 PM EDT Gender Identity Not on file Sexual Orientation Not on file documented as of this encounter Miscellaneous Notes * Telephone Encounter - Katherin Garza LPN - 01/05/2024 10:51 AM EDT Spoke with patient. Advised that we are in the office until 4:30 pm today. Patient will call back if unable to come in * Telephone Encounter - Shireen Lopez ([facility]) - 01/05/2024 10:20 AM EDT Patient is asking to come later today to get her prolia injection. Her appt is at 11AM, but she is having car trouble. Patient number: [phone] (home) Electronically signed by Shireen Lopez ([facility]) at 01/05/2024 10:22 AM EDT documented in this encounter Plan of Treatment Not on file documented as of this encounter Visit Diagnoses Not on filedocumented in this encounter Care Teams Vice President Of Instruction Relationship Specialty Start Date End Date Pcp, Pending Only, [place], [place] [phone] PCP - General Internal Medicine 06/01/23 documented as of this encounter
--- OUTSIDE RECORDS SUMMARY | 2024-12-31 09:12 | XMS_ITS | Clinical Summary ---
Author Organization [facility] Address [address] [place] [address] Phone Care Team Providers Care Lgsw Name Role Phone Jose Roberto Babb MD Unavailable Lenin Santa MD Unavailable [phone] Allergies Active Allergy Reactions Criticality Noted Date Comments Adhesive Tape-Silicones Amoxicillin-Pot Clavulanate 07/01/2014 Diphenhydramine Hcl 12/01/2010 Clarithromycin 12/01/2010 Cipro Cystitis 12/01/2010 Gabapentin 07/22/2015 Patient states made her sick Hydrocortisone Other (See Comments) 06/18/2024 Patient reported getting deathly ill and not being able to sit up Iodinated Contrast Media Other (See Comments) 01/20/2019 Pt states that she had a reaction to IV contrast; pt is not sure where she had test done and had reaction and unsure of what type of reaction she had; Cephalexin 07/01/2014 Hydrocodone-Acetaminophen 12/01/2010 [facility] 12/01/2010 Penicillins 09/17/2016 Pomegranate Throat swell Sulfa (Sulfonamide Antibiotics) 12/01/2010 Tetanus Vaccines And Toxoid 12/01/2010 Medications multivitamin (THERAGRAN) per tablet Take 1 Tab by mouth daily. OTC Active Calcium-Vitamin D3-Vitamin K 500-200-40 mg-unit-mcg Tab Take by mouth daily. Active meclizine (ANTIVERT) 12.5 mg Oral Tablet TAKE 1 TABLET THREE TIMES A DAY NEEDED FOR DIZZINESS 45 Tab 3 6 Active Additional Information Patient not taking.Reason: Pt electing to not take the medication, Reported on 06/18/2024 nitroGLYCERIN (NITRO-DUR) 0.4 mg/hr TD Patch 24 hrIndications:At herosclerosis of coronary artery with other form of angina pectoris, unspecified vessel or lesion type, unspecified whether [place] or transplanted heart Place 1 Patch onto the skin as needed. 30 Patch 6 7 Active Additional Information Patient not taking.Reason: Other (Patient has not needed), Reported on 06/18/2024 calcium carbonate (TUMS) 200 mg calcium (500 mg) Oral Tablet, Chewable Take 1 Tab by mouth daily. Active clopidogreL (PLAVIX) 75 mg Oral Tablet Take by mouth daily. Active rosuvastatin (CRESTOR) 20 mg Oral Tablet Take 20 mg by mouth daily. Active ezetimibe (ZETIA) 10 mg Oral Tablet Take by mouth daily. Active ipratropium (ATROVENT) 0.03 % Nasl [place], Non-Aerosol by Nasal route 2 times daily. Active LEVOthyroxine (SYNTHROID) 50 mcg Oral TabletIndication s:Hypothyroidism (acquired) TAKE 1 TABLET BY MOUTH EVERY MORNING BEFORE BREAKFAST 90 Tab 1 0 Active lutein 20 mg Oral Tablet Take 1 Tab by mouth. Active ELDERBERRY FRUIT AND FLOWER ORAL Take 1 Tab by mouth. Active lactobacillus rhamnosus, GG, (CULTURELLE) 10 billion cell Oral Capsule Take 2 Caps by mouth daily. Active nitrofurantoin (MACRODANTIN) 50 mg Oral Capsule Take 50 mg by mouth daily. Active vitamin E 100 unit Oral Capsule Take 100 Units by mouth daily. Active COLLAGEN MISC by Misc.(Non-Drug; Combo Route) route. Active rivaroxaban (XARELTO) 15 mg Oral Tablet Take 15 mg by mouth daily. 2 Active spironolactone (ALDACTONE) 25 mg Oral Tablet Take 25 mg by mouth daily. 1 Active amitriptyline (ELAVIL) 10 mg Oral TabletIndication s:Foot pain, bilateral Take 1 Tablet by mouth nightly as needed for Sleep. 30 Tablet 5 2 Active Additional Information Patient not taking.Reason: Pt electing to not take the medication, Reported on 06/18/2024 acyclovir (ZOVIRAX) 200 mg/5 mL Oral SuspensionIndica tions:Sore in mouth Take 5 mL by mouth every 12 hours. 20 mL 2 Active Additional Information Patient not taking.Reason: Therapy Completed, Reported on 06/18/2024 methylPREDNISolo ne (MEDROL DOSPACK) 4 mg Oral Tablets, Dose Pack Follow package directions 21 Tablet 4 Active Additional Information Patient not taking.Reason: Therapy Completed, Reported on 06/18/2024 Active Problems Patient Care Coordination No te Formatting of this note migh t be different from the original. Contract 05/03/12 Consent 05/03/12 UDS 03/04/15 Massimo SOAPP 05/03/12 Problem Noted Date Diagnosed Date Urinary tract infection without hematuria 2023 Impaired mobility and endurance 07/21/2022 DDD (degenerative disc disease), lumbar 07/21/20 22 Hypothyroidism (acquired) 10/07/2016 Urinary tract infection associated with cystosto my catheter 09/20/2016 Chronic nonintractable headache 09/12/2016 Elevated erythrocyte sedimentation rate 09/12/19 17 Diffuse pain 09/12/2016 Medication monitoring encounter 01/17/2015 OP (osteoporosis) 01/17/2015 Chronic back pain 01/17/2015 Generalized osteoarthritis of multiple sites Influenza A 07/21/2014 Syncope 07/20/2014 Hypokalemia 07/20/2014 Anxiety associated with depression 07/20/2014 Generalized OA 07/20/2014 CAD (coronary atherosclerotic disease) 3 Falling 06/10/2013 UTI (lower urinary tract infection) 06/10/2013 DJD (degenerative joint disease) IBS (irritable bowel syndrome) Insomnia History of PTCA Glaucoma High cholesterol 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 Chronic cluster headache, not intractable Resolved Problems Problem Noted Date Diagnosed Date Resolved Date Basilar skull fracture 06/10/201302/28 Maxillary sinusitis 06/10/2013 07/20/20 14 Thyroid disease 07/20/2014 Encounters Date Type Department Care Team Description 11/26/2024 [place] [address] Gerardo Gupta MD Patient Question 11/26/2024 Telephone [facility] Neurology [facility] [address] [place] [address] Ciera Noguera, DO No Show (SNC ) 11/08/2024 Telephone [facility] [address] [place] [address] Dae Scanlon, DO Other (fyi) 10/10/2024 [facility]phone [facility] [place] [address] Nonstaff, Referring Other (Requesting Dr for neuropathy) from Last 3 Months Immunizations Immunization Administration Dates Next Due Influenza Patient Reported 09/06/2016 Influenza Vaccine, Unspecified Formulation 04/27,09/16/2015 Pneumococcal Conjugate Vaccine 13 Valent 015 Pneumococcal Conjugate Vaccine 20 Valent 023 Pneumococcal Polysaccharide 23 Valent 07/21/2012 Zoster Recombinant 07/24/2020 Surgical History Surgery Date Site/Laterality Comments COLONOSCOPY VARICOSE VEIN SURGERY ligation and stripping THYROID SURGERY TUMOR REMOVAL benign,attached to carotid artery and voice box -6yrs ago TUMOR REMOVAL 6 or 7 years ago 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 09/28/2016 Right LEFT TEMPORAL ARTERY BIOPSY; Surgeon: Leatha Philip MD; Location: [facility] OR; Service: General HYSTERECTOMY partial 30 yrs ago BREAST BIOPSY benign - left breast EYE SURGERY eyelid,cataracts, corneal transplants kalyn eyes EYE SURGERY 04/20/2012 Right RIGHT EYE YAG LASER CAPSULOTOMY ; Surgeon: Lukas Stroud MD; Location: [facility]; Service: Ophthalmology EYE SURGERY 04/27/2012 Left LEFT EYE YAG LASER CAPSULOTOMY ; Surgeon: Lukas Stroud MD; Location: [facility]; Service: Ophthalmology UPPER GASTROINTESTINAL ENDOSCOPY Medical History Medical History Date Comments DJD (degenerative joint disease) DJD of back IBS (irritable bowel syndrome) Insomnia History of PTCA Glaucoma Thyroid disease High cholesterol Fibrocystic disease of breast Lump or mass in breast Chest pain Angina pectoris Varicose veins of lower extremities Hyperlipidemia Chronic sinusitis Cataract Varicose veins of lower extr emities with complications Pain in limb Venous insufficiency Diaphragmatic hernia without mention of obstruction or gangrene CAD (coronary artery disease) st ent - 15-18 yrs ago Heartburn Other disorders of kidney and ureter frequency, urgency Postoperative nausea and vomiting Dizziness at times CHF (congestive heart failure) (HCC) Blood circulation, collateral ID (myocardial infarction) (HCC) Seizures (HCC) patient does not know when last seizure occurred Stroke (HCC) Self-catheterizes urinary bladder Encounter for blood transfusion Cardiac dysrhythmia Family History Medical History Relation Name Comments Diabetes Father Heart Disease Father Coronary Art Dis Mother Heart Disease Mother High Cholesterol Mother Anesth Problems Neg Hx Relation Name Status Comments Father Mother Social History Tobacco Use Types Packs/Day Years Used Date Smoking Tobacco: Never Smokeless Tobacco: Never Tobacco Cessation:Counseling Given: Not Answered Alcohol Use Standard Drinks/Week Comments No 0 (1 standard drink = 0.6 oz pur e alcohol) AUDIT-C Answer Date Recorded Q1: How often do you have a drink containing alc ohol? Never 05/27/2020 Q2: How many drinks containi ng alcohol do you have on a typical day when you are drinking? Not asked 05/27/2020 Q3: How often do you have six or more drinks on one occasion? Never 05/27/2020 Overall Financial Resource Strain (CARDIA) Answe r Date Recorded How hard is it for you to pa y for the very basics like food, housing, medical care, and heating? Somewhat hard 06/24/2022 PHQ-2 Answer Date Recorded PHQ-2 Score 2 01/02/2020 [facility] - Occupational Stress Questionnaire Answer Date Recorded Do you feel stress - tense, restless, nervous, or anxious, or unable to sleep at night because your mind is troubled all the time - these days? Only a little 06/24/2022 Exercise Vital Sign Answer Date Recorde d On average, how many days pe r week do you engage in moderate to strenuous exercise (like a brisk walk)? 0 days 06/24/2022 On average, how many minutes do you engage in exercise at this level? 0 min 06/24/2022 Hunger Vital Sign Answer Date Recorded Within the past 12 months, y ou worried that your food would run out before you got the money to buy more. Never true 06/24/20 22 Within the past 12 months, t he food you bought just didn't last and you didn't have money to get more. Never true 06/24/2022 PRAPARE - Transportation Answer Date Re corded In the past 12 months, has l ack of transportation kept you from medical appointments or from getting medications? Yes 07/2021 In the past 12 months, has l ack of transportation kept you from meetings, work, or from getting things needed for daily living? Yes 06/24/2022 Comments No Sex and Gender Information Value Date Recorded Sex Assigned at Not on file Legal Sex Female 10:07 PM EDT Gender Identity Not on file Sexual Orientation Not on file Obstetrics History Para Term AB IAB SAB Ectopic Multiple Livin g Live Births 2 2 Date Outcome GA Total Labor Labor/2nd/3rd Weight Sex Type Anes PTL Jayna A1 A5 Name Clin Last Filed Vital Signs Vital Sign Reading Time Taken Comments Blood Pressure 114/88 03/01/2022 10:50 AM EDT Pulse 71 03/01/2022 10:50 AM EDT Temperature 36.7 C (98 F) 09/30/2022 10:48 AM EST Respiratory Rate 16 03/01/2022 10:50 AM EDT Oxygen Saturation 98% 03/01/2022 10:50 AM EDT Inhaled Oxygen Concentration - - Weight 48.1 kg (106 lb) 06/18/2024 2:09 PM EST Height 149.9 cm (4' 11 ) 06/18/2024 2:09 PM EST Body Mass Index 21.41 06/18/2024 2:09 PM EST Plan of Treatment Upcoming Encounters Date Type Department Care Team (Late st Contact Info) Description 01/01/2025 12:40 PM EDT Office Visit [facility] Neurology [facility] [address] [place] [address] Ciera Noguera DO [address] [employer] [address] 01/07/2025 1:00 PM EDT Office Visit [facility] [address] [place] [address] Gerardo Gupta MD [address] [place] [address] 01/31/2025 11:45 AM EDT Office Visit [facility] Pod[facility] [address] [place] [address] Gerardo Layne, DPM [address] [facility] [address] [place] [address] 02/08/2025 11:00 AM EDT Appointment [place] [facility] [address] [facility] [address], [place] [address] Dinesh Torrez MD [address] [place], [place] [id number] 02/08/2025 11:30 AM EDT Appointment [place] [facility] [address], [place] [address] Dinesh Torrez MD [address] [place], [place] [id number] Health Maintenance Due Date Last Done Comments DTaP/TDaP/Td (1 - Tdap) 09/27/1996 09/26/1996 Wellness Exam Medicare 03/02/2023 03/01/2022 COVID-19 Vaccine ( season) 2024 07/06/2021, 09/23/2020, 08/28/2020 Influenza Vaccine (Season Ended) 2025 07/08/2023, 06/02/2022, 06/17/2021, Additional history exists Bone Density Screening Completed 7, 03/11/2016, 01/18/2014, Additional history exists Zoster Completed 07/24/2020, 04/07/2020 Pneumococcal Vaccine 50+ Completed 023, 07/22/2015, 07/21/2012 RSV or 60+ Completed 07/21/2023 Hepatitis B Vaccine Aged Out No longe r eligible based on patient's age to complete this topic Meningococcal B Vaccine Aged Out No l onger eligible based on patient's age to complete this topic Goals Goal Patient Goal Type Associated Problems Recent Progress Patient-Stated? Author Maintain a healthy diet, exercise regularly and maintain an ideal body weight General On track(05/04/20 10:40 AM EDT) No Ale Quintana General Patient will remain free of falls and injury General On track(05/04/20 10:40 AM EDT) No Fabiana Parks, independent sales representative Procedure Name Priority Date/Time Associated Diagnosis Comments DX BONE DENSITY AXIAL SKELETON Routine 03/02/2017 10:05 AM EDT Osteoporosis, postmenopausal from Last 3 Months or Most Recently Relevant to Health Maintenance Results * DX BONE DENSITY AXIAL SKELETON (03/02/2017 10:05 AM EDT) Anatomical Region Laterality Modality Dexa Scan 03/02/2017 Narrative 03/02/2017 4:08 PM EDT Indication: The patient is presently being monitored while on treatment and requires a bone density assessment. Study was performed on [facility] 3.2. Bone Density: Region BMD T-score Z-score AP Spine (L1, L2) 0.673 -2.8 -0.4 Femoral Neck (Right) 0.472 -3.4 -1.2 Total Hip (Right) 0.550 -3.2 -1.3 1/3 Radius (Left) 0.562 -2.2 0.6 World Health Organization criteria for BMD interpretation classify patients as: Normal (T-score at or above -1.0), Low Bone Density (T-score between -1.0 and -2.5), or Osteoporotic (T-score at or below -2.5). T Scores are reported in Postmenopausal women and in men age 50 and older. Z-scores are reported in females prior to menopause and in males younger than age 50. 10-year Fracture Risk: FRAX not reported because: Some T-score at or below -2.5 Treated for osteoporosis Previous Exams: Region Date Age BMD T-score BMD Change AP Spine(L1, L2) 03/02/2017 76 0.673 -2.8 5.4%* 03/11/2016 75 0.638 -3.1 Total Hip(Right) 03/02/2017 76 0.550 -3.2 0.0% 03/11/2016 75 0.550 -3.2 -11.4%* 12/14/2010 70 0.621 -2.6 -2.6% 10/16/2007 67 0.637 -2.5 -5.2%* 05/11/2004 63 0.672 -2.2 -4.6%* 05/11/2001 60 0.704 -1.9 1/3 Forearm(Left) 03/02/2017 76 0.562 -2.2 5.1%* 03/11/2016 75 0.534 -2.7 *Denotes significance at 95% confidence level, site specific LSC for AP Spine = 0.031 g/cm2, site specific LSC for Total Hip = 0.025 g/cm2, LSC for 1/3 Forearm = 0.023 g/cm2 BMD is shown in g/cm2 and BMD Change indicates change vs previous BMD Clinical Information Provided by Patient: Is being treated for osteoporosis. Has taken a prescription medication that prevents/treats osteoporosis in the last year. Has used or is currently using the following medications: Calcium, Vitamin D, Thyroid medication, Prolia Has had or currently has the following medical conditions: Back pain, Hip pain Patient maximum height was 63.0 Menopause Age: 49 Patient is Postmenopausal. Has low body mass. Interpretation: Bone mineral density is in the osteoporotic range. A minimum of two years may be required between bone density studies due to inherent testing precision limitations. Intervals between BMD testing should be determined according to each patient's clinical status: typically one year after initiation or change of therapy is appropriate, with longer intervals once therapeutic effect is established. The spine portion of the study is limited by visual hypertrophic change with associated vertebra deleted. The prior spine portion of the study has been reanalyzed for better comparison with today's exam. The spine bone mineral density is significantly increased from the last exam. The right hip bone mineral density is not significantly changed since the last exam. Although not approved for monitoring therapy the forearm bone mineral density is significantly increased since the last exam. Reported by: Stefanie Cameron PA-C, CCD on 03/02/2017 3:05:00 PM. Savannah Leone MD IMG DEXA ORDERABLES Final Resu lt from Last 3 Months or Most Recently Relevant to Health Maintenance Insurance [place] [address] [facility] MEDICARE SUPPLEMENT [place]ICARE [place] MEDIC[place] SUPPLEMENT [facility] MEDICARE SUPPLEMENT [place]ICARE [place] SU[place]MENT Advance Directives For more information, please contact: [phone] * Full Code (Latest Code Status on File) Date Activated Date Inactivated Comments 09/21/2016 12:41 PM 09/29/2016 6:43 PM * Full Code Date Activated Date Inactivated Comments 07/21/2014 8:06 AM 07/22/2014 5:50 PM Care Teams Lgsw Relationship Specialty Start Date End Date Jose Roberto Babb MD Surgeon Surgery-Vascular Surgery 08/27/11 Lenin Santa MD [address] [facility] Building [address] [place] [address] Internal Medicine-Rheumatology 07/01/14
--- OUTSIDE RECORDS SUMMARY | 2024-12-31 09:13 | XMS_ITS | Encounter Summary ---
Author Organization [facility] Address [address] [address] Phone Care Team Providers Care Vision Therapist Name Role Phone Luke Quarles MD Primary Care Provider [phone] Armando Scanlon MD Primary Care Provider [phone] Pcp, Pending Only Primary Care Provider [phone] Encounter Details Date Type Department Care Team (Late st Contact Info) Description 02/18/2014 [facility] Internal Medicine [address] [facility] [place] [address] Social History Tobacco Use Types Packs/Day Years Used Date Smoking Tobacco: Never Smokeless Tobacco: Never Alcohol Use Standard Drinks/Week Comments No 0 (1 standard drink = 0.6 oz pur e alcohol) Comments Unknown Sex and Gender Information Value Date Recorded Sex Assigned at Not on file Legal Sex Female 7:17 PM EDT Gender Identity Not on file Sexual Orientation Not on file documented as of this encounter Plan of Treatment Not on file documented as of this encounter Procedures Procedure Name Priority Date/Time Associated Diagnosis Comments DEXA BONE DENSITY,AXIAL SKELETON Routine 01/18/2014 documented in this encounter Results * DEXA BONE DENSITY,AXIAL SKELETON (01/18/2014) Anatomical Region Laterality Modality Other us Historical Med SPECIAL IMAGING STUDIES Final Re sult documented in this encounter Visit Diagnoses Not on filedocumented in this encounter Care Teams Vision Therapist Relationship Specialty Start Date End Date Luke Quarles MD [address] [place] [address] PCP - General 01/22/05 09/09/20 Armando Scanlon MD [address] [place] [address] PCP - General Pediatrics 09/10/20 05/31/23 Pcp, Pending Only, [place] [address] PCP - General Internal Medicine 06/01/23 documented as of this encounter
--- OUTSIDE RECORDS SUMMARY | 2024-12-31 09:13 | XMS_ITS | Encounter Summary ---
Author Organization [facility] Address [address] [place] [address] Care Team Providers Care Convention Worker Name Role Phone Jose Roberto Babb MD Unavailable Lenin Santa MD Unavailable [phone] Reason for Visit * Reason Onset Date Comments Patient Question 11/26/2024 Encounter Details Date Type Department Care Team (Late st Contact Info) Description 11/26/2024 [place] [address] Gerardo Gupta MD [address] [place] [id number] Patient Question Social History Tobacco Use Types Packs/Day Years [...] Answer Date Recorded PHQ-2 Score 2 01/02/2020 [facility] - Occupational Stress Questionnaire Answer Date Recorded [...] on file documented as of this encounter Functional Status * Is the person deaf or does he/she have serious difficulty hearing? Answer Date of Assessment Author No 01/02/2020 11:18 AM Chani Khan RMA * Is the person blind or does he/she have serious difficulty seeing even when wearing glasses? Answer Date of Assessment Author No 01/02/2020 11:18 AM Chani Khan RMA * Does this person have serious difficulty walking or climbing stairs? Answer Date of Assessment Author No 01/02/2020 11:18 AM Chani Khan RMA * Does this person have difficulty dressing or bathing? Answer Date of Assessment Author No 01/02/2020 11:18 AM Chani Khan RMA * Because of a physical, mental or emotional condition, does this person have difficulty doing errands alone such as visiting a doctor's office or shopping? Answer Date of Assessment Author No 01/02/2020 11:18 AM EDT Chani Coffey RMA documented as of this encounter Mental Status * Because of a physical, mental or emotional condition, does this person have serious difficulty concentrating, remembering or making decisions? Answer Entry Date Author No 01/02/2020 11:18 AM EDT Chani Coffey RMA documented in this encounter Miscellaneous Notes * Telephone Encounter - Arpit Coy MA - 11/28/2024 11:51 AM EDT Spoke with patient, she wanted to speak with him directly, I informed her that his team takes the calls first. She asked me how often she could get a shoulder injection, and I told her every 3/4 months. She then asked me if he would see her for her neuropathy, but I informed her she should see her PCP for that, and then she hung up. * Telephone Encounter - Arpit Coy MA - 11/28/2024 11:48 AM EDT attempt #2 to reach patient. Sounded like someone picked up again, and I kept saying hello and noresponse again. * Telephone Encounter - Arpit Coy MA - 11/27/2024 11:50 AM EDT attempted to reach patient, no answer. It seemed like someone picked up the phone but all I could hear was the TV in the background and no one ever spoke or responded. * Telephone Encounter - Katie Morgan, Clerical Staff - 11/26/2024 4:52 PM EDT Summary: Patient Questions Patient is requesting to speak w/Dr Gupta, offered patient appt because she hasn't been seen since 06/04/24 and she declined stating she is very sick and unable to walk, she states she doesn't want to speak with anyone other than Dr Gupta wanting to know what she can do for neuropathy andshe has a question in regards to steroids and the cortisone injection that she got in her shoulder on her last visit. documented in this encounter Plan of Treatment Upcoming Encounters Date Type Department Care Team (Late st Contact Info) Description 01/01/2025 12:40 PM EDT Office Visit [facility]P Neurology [facility] [address] [place] [address] Ciera Noguera DO [address] [facility] [address] [place] [address] 01/07/2025 1:00 PM EDT Office Visit [facility] [address] [place] [address] Gerardo Gupta MD [address] [place] [address] 01/31/2025 11:45 AM EDT Office Visit [facility] Podiatry [place] [address] [place] [address] Gerardo Layne, DPM [address] [facility] [address] [place] [address] 02/08/2025 11:[address] [facility] [address] [place], [place] [id number] Dinesh Torrez MD [address] [place], [place] [id number] 02/08/2025 11:30 AM EDT Appointment [facility] [address] [id number] Dinesh Torrez MD [address] [place] [address] documented as of this encounter Goals Goal Patient Goal Type Associated Problems Recent Progress Patient-Stated? Author Maintain a healthy diet, exercise regularly and maintain an ideal body weight General On track(05/04/20 10:40 AM EDT) No Ale Quintana General Patient will remain free of falls and injury General On track(05/04/20 10:40 AM EDT) No Fabiana Parks RN documented as of this encounter Visit Diagnoses Not on filedocumented in this encounter Additional Health Concerns Assessment Noted Time A fall risk assessment has been complete d for the patient 05/19/2020 10:52 AM EDT documented as of this encounter Care Teams Convention Worker Relationship Specialty Start Date End Date Jose Roberto Babb MD Surgeon Surgery-Vascular Surgery 08/27/11 Lenin Santa MD [address] [id number] Internal Medicine-Rheumatology 07/01/14 documented as of this encounter
--- OUTSIDE RECORDS SUMMARY | 2024-12-31 09:13 | XMS_ITS | Encounter Summary ---
Author Organization [facility] [place] [address] Care Team Providers Care Senior Net C Developer Name Role Phone Jose Roberto Babb MD Unavailable Lenin Santa MD Unavailable [phone] Reason for Visit * Reason Onset Date Comments No Show 11/26/2024 SNC Encounter Details Date Type Department Care Team (Late st Contact Info) Description 11/26/2024 Telephone SEP Neurology [facility] [address] [place] [address] Ciera Noguera, [address] [facility] [address] [place] [address] No Show (SNC ) Social History Tobacco Use Types Packs/Day Years [...] Never 05/27/2020 Overall Financial Resource Strain (CARDIA) Armaane r Date Recorded How hard is it for you to pa y for the very basics like food, housing, medical care, and heating? Somewhat hard 06/24/2022 PHQ-2 Answer Date Recorded PHQ-2 Score 2 01/02/2020 [facility]at [facility] - Occupational Stress Questionnaire Answer Date Recorded [...] 01/02/2020 11:18 AM EDT Chani Coffey RMA * Because of a physical, mental [...] encounter Miscellaneous Notes * Telephone Encounter - Ciera Rachel - 11/26/2024 4:26 PM EDT Canceled appointment less than 24 hrs prior to scheduled appointment time documented in this encounter Plan of Treatment Upcoming Encounters Date Type Department Care Team (Late st Contact Info) Description 01/01/2025 12:40 PM EDT Office Visit SEP Neurology [facility] [address] [place] [address] Ciera Noguera DO [address] [address] 01/07/2025 1:00 PM EDT Office Visit [facility] [address] [place] [address] Gerardo Gupta MD [address] [place] [address] 01/31/2025 11:45 AM EDT Office Visit [facility] Podiatry [place] [address] [place] [address] Gerardo Layne DPM [address] [address] 02/08/2025 11:[address] [facility] [address], [place] [id number] Dinesh Torrez MD [address] [place], [place] [address] 02/08/2025 11:[address] [address], [place] [address] Dinesh Torrez MD [address] [place], [place] [id number] documented as of this encounter Goals Goal Patient Goal Type Associated Problems Recent Progress Patient-Stated? Author Maintain a healthy diet, exercise regularly and maintain an ideal body weight General On track(05/04/20 10:40 AM EDT) No Ale Quintana General Patient will remain free of falls and injury General On track(05/04/20 10:40 AM EDT) No Fabiana Parks, GUIDO documented as of this encounter Visit Diagnoses Not on filedocumented in this encounter Additional Health Concerns Assessment Noted Time A fall risk assessment has been complete d for the patient 05/19/2020 10:52 AM EDT documented as of this encounter Care Teams Senior Net C Developer Relationship Specialty Start Date End Date Jose Roberto Babb MD Surgeon Surgery-Vascular Surgery 08/27/11 Lenin Santa MD [address] [facility] Building [address] [place], [place] [id number] Internal Medicine-Rheumatology 07/01/14 documented as of this encounter
--- OUTSIDE RECORDS SUMMARY | 2024-12-31 09:13 | XMS_ITS | Clinical Summary ---
Author Organization [facility] Address [address] [place] [address] Care Team Providers Care Office Machine Servicer Name Role Phone Doris Flaherty MD Unavailable [phone] Dinesh Torrez MD Unavailable [phone] Roverto Sears MD Unavailable [phone] Inez Watson RN Unavailable Delon Zheng MD Unavailable + [phone] Reyna Leon Unavailable Unavailable Ynes Méndez MA Unavailable [phone] Deena De La Rosa RN Unavailable Dawson Cade MD Unavailable [phone] Francisco Coronado MD Unavailable Unavailable Avery Diehl RN Unavailable [phone] Isidoro Tello MD Unavailable [phone] Tank Duffy NP Unavailable +- [phone] Dougie Barber MD Unavailable [phone] Armando Nieves MD Unavailable Gerardo Crawford MD Unavailable [phone] Regino Jang NP Unavailable +- [phone] Acosta Pittman MD Unavailable Nicole Antony NP Unavailable [phone] Luis Fernando Jain MD Primary Care Provider [phone] Allergies Active Allergy Reactions Criticality Noted Date Comments Adhesive Tape-Silicones Swelling 10/13/2015 Amoxicillin-Pot Clavulanate 07/01/2014 Cephalexin 07/01/2014 Ciprofloxacin Nausea And Vomiting 01/04/2009 Clarithromycin Swelling 01/10/2014 Diatrizoate Lilia-Diatrizoat Sod 12/12/2017 Diphenhydramine Hcl Swelling 12/01/2010 Doxycycline High 01/13/2012 Duloxetine Swelling 10/13/2015 Gabapentin 10/13/2015 Patient states made her sick Hydrocodone-Acetaminophe n 01/10/2014 Other reaction(s): Confusion Iodinated Contrast Media Other (See Comments) 0 01/20/2019 Pt states that she had a reaction to IV contrast; pt is not sure where she had test done and had reaction and unsure of what type of reaction she had; [facility] 10/13/2015 Penicillins 09/17/2016 Pomegranate Swelling 01/10/2014 Throat swell Prednisone Swelling 07/25/2018 Procaine Hcl 01/13/2012 Other reaction(s): Unknown Sulfa (Sulfonamide Antibiotics) 10/13/2015 Sulfamethoxazole-Trimeth oprim Anaphylaxis 01/24/2014 Tetanus And Diphtheria Toxoids, Adsorbed, Adult High 07/10/2013 Other reaction(s): Unknown Tetanus Vaccines And Toxoid Other (See Comments) 01/04/2009 out of it Trimethoprim High 01/13/2012 Medications vitamin E acetate (VITAMIN E PO) Take by mouth. Activ e levothyroxine (LevoxyL) 50 mcg tabletIndication s:Hypothyroidism , unspecified type Take 1 Tablet (50 mcg) by mouth daily. 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 90 Tablet 3 Active Additional Information Patient not taking.Reported on 07/06/2024 Cholecalciferol, Vitamin D3, 125 mcg (5,000 unit) Capsule Take 1 Capsule by mouth daily. 4 Active apixaban (ELIQUIS) 2.5 mg tabIndications:P aroxysmal atrial fibrillation ([facility]) Take 1 Tablet (2.5 mg) by mouth 2 times daily. Samples Lot [id number] exp June 2025 28 Tablet 4 Active furosemide (LASIX) 20 mg tablet Take 1 Tablet (20 mg) by mouth daily. 30 Tablet 6 4 Active Additional Information Patient not taking.Reported on 07/06/2024 vitamin D3-vitamin K2, MK4, (K2 Plus D3) 1,000-100 unit-mcg Tablet Take by mouth. Active Active Problems Problem Noted Date Diagnosed Date Atrial fibrillation with RVR ([facility]) 2 Paroxysmal atrial fibrillation ([facility]) 022 Overview (08/12/2021): Diagnosed on [email or web address] ambulatory monitor 07/2021 Pure hypercholesterolemia 07/10/2021 Chronic hypotension 07/10/2021 Insomnia 09/19/2020 IBS (irritable bowel syndrome) 09/19/2020 Chronic cluster headache, not intractable 2020 TIA (transient ischemic attack) 07/24/2018 Overview (09/21/2020): Patient had hx of amaurosis fugax , has occurred at least 5 times, high risk of stroke. Assessment & Plan (09/21/2020 2:31 PM EST): Continue risk modification aggressively Low back pain 07/24/2018 Overview (10/06/2020): 2/2 kyphoscoliosis Pain is mainly in thoraco lumbar areas with left sided sciatica radiating to left buttock. Pain is improved when laying down. Patient very vent over when walking. 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 - used to see cardiology but not currently established with anyone. Wants to get in with dr wang BP Readings from Last 3 Encounters: 09/19/20 102/64 06/15/19 131/77 07/26/18 121/56 Current medications: Crestor 20mg, Zetia 10mg, plavix 75mg Denies SE of medication. No CP, palpitation, SOB, DUARTE, vision changes, dizziness, nausea Dyslipidemia 10/13/2015 Overview (09/21/2020): Lab Results Component Value Date CHL 214 (HIGH) 01/05/2009 HDL 47 01/05/2009 LDLCALCEXT 151 (HIGH) 01/05/2009 TRIG 78 01/05/2009 - on crestor and zetia Assessment & Plan (09/21/2020 2:36 PM EST): Continue current medications Hypothyroid 10/13/2015 Overview (09/21/2020): Post surgical, only has 5% thyroid left Current medication: Levothyroxine 50mcg Lab Results Component Value Date TSH 4.62 07/26/2018 Will repeat every 6 months Assessment & Plan (09/21/2020 2:41 PM EST): Repeat TSH in a few months (6 months) OP (osteoporosis) 01/17/2015 Overview (09/21/2020): Last dexa 2016, in osteoporotic range. Has hx compression fx of L2 - I am unclear what treatments she has had for osteoporosis Assessment & Plan (09/21/2020 2:35 PM EST): Recommend 2000u vitamin D and 1200 calcium daily - weight bearing exercise Anxiety associated with depression 07/20/2014 Compression fracture of L2 lumbar vertebra ([facility]) 01/24/2014 Generalized osteoarthritis 01/10/2014 Basilar skull fracture ([facility]) 06/10/2013 Resolved Problems Problem Noted Date Diagnosed Date Resolved Date NSTEMI (non-ST elevated myoc ardial infarction) ([facility]) 03/01/2021 07/10/2021 TIA (transient ischemic attack) 12/01/2020 07/10/2021 Encounters Date Type Department Care Team Description 12/24/2024 Telephone [facility] Physicians - Heart & Vascular, [place] [address] [place] [address] Isidoro Tello MD Nausea (More than a week) from Last 3 Months Immunizations Immunization Administration Dates Next Due Influenza (whole) 04/27/2020,09/06/2016,09/16/19 16 Pneumococcal Conjugate 13 valent (PREVNAR) 07/22 Pneumococcal Polysaccharide 23 Valent (PNEUMOVAX) 07/21/2012 Zoster-RZV(Shingrix) 07/24/2020 Family History Medical History Relation Name Comments Diabetes Father Heart Problems Father Stroke Father Bleeding Problem Mother Clotting Disorder Mother High Cholesterol Mother Hypertension Mother Osteoarthritis Mother Rashes/Skin Problems Mother Rheumatoid Arthritis Mother Stroke Mother Relation Name Status Comments Father Mother Social History Tobacco Use Types Packs/Day Years Used Date Smoking Tobacco: Never Smokeless Tobacco: Never Tobacco Cessation:Counseling Given: No Alcohol Use Standard Drinks/Week Comments No 0 (1 standard drink = 0.6 oz pur e alcohol) PHQ-2 Answer Date Recorded PHQ-9 Auto Total 0 09/19/2020 Comments No Sex and Gender Information Value Date Recorded Sex Assigned at Not on file Legal Sex Female 1:45 PM EST Gender Identity Not on file Sexual Orientation Not on file Last Filed Vital Signs Vital Sign Reading Time Taken Comments Blood Pressure 111/56 07/06/2024 10:27 AM EST Pulse 79 07/06/2024 10:27 AM EST Temperature 36.1 C (97 F) 09/16/2023 10:07 AM EST Respiratory Rate 16 02/09/2024 1:45 PM EDT Oxygen Saturation 99% 09/16/2023 10:07 AM EST Inhaled Oxygen Concentration - - Weight 45.4 kg (100 lb) 07/06/2024 10:27 AM EST Height 149.9 cm (4' 11 ) 07/06/2024 10:27 AM EST Body Mass Index 20.2 07/06/2024 10:27 AM EST Plan of Treatment Upcoming Encounters Date Type Department Care Team (Late st Contact Info) Description 03/26/2025 2:00 PM EDT Appointment [facility] Physicians - Heart & Vascular, [place] [address] [place] [address] Isidoro Tello MD [address] [place] [address] Health Maintenance Due Date Last Done Comments Tetanus Vaccination (Every 1 0 Years) 1958 RSV Vaccines (1 - 1-dose 75+ series) 2014 Fall Risk Assessment 09/19/2021 09/19/2020 Osteoporosis Screening 03/02/2022 7, 03/02/2017, 03/02/2017, Additional history exists Lipid Monitoring 10/28/2022 10/28/2021, 04/2021, 01/05/2009 COVID-19 Vaccine (2023-2 5 season) 2024 07/06/2021, 09/23/2020, 08/28/2020 Advance Care Planning 07/25/2024 Depression Screening 07/25/2024 09/19/2020 Pneumococcal Vaccine: 50+ Years Completed 5, 07/21/2012 Zoster-RZV(Shingrix) Completed 07/24/2020, 04/07/20 20 Lipid Screening Discontinued 10/28/2021, 02/22, 05/14/2020, Additional history exists Influenza Vaccination (Yearly) Discontinued 1 08/11/2023, 04/27/2020, 05/15/2019, Additional history exists Influenza Vaccination Completed 06/11/2024 , 04/27/2020, 05/15/2019, Additional history exists Goals Goal Patient Goal Type Associated Problems Recent Progress Patient-Stated? Author Increase physical activity Lifestyle No Brittani Troy, VELASQUEZ [employer] Implanted Type Area Emery Wheel Molder Device Identifier Shelf Expiration Date Model / Serial / Lot Perclose Prostyle. - [id number] Implanted:Qty : 1 on 03/02/2021 by Francisco Coronado MD at [facility]3] Closure Device * Atonarp [id number] 10/22/2022 [id number] / / [id number] Stnt Synergy Xd 3.0x24 - [id number] Implanted:Qty : 1 on 03/02/2021 by Francisco Coronado MD at [facility]3] Drug Eluting Stent * Xoft [id number] 12/02/2022 [id number] / / [id number] Procedures Procedure Name Priority Date/Time Associated Diagnosis Comments LIPID PROFILE Routine 10/28/2021 5:48 AM EDT from Last 3 Months or Most Recently Relevant to Health Maintenance Results * LIPID PROFILE (10/28/2021 5:48 AM EDT) Chol/HDL Ratio 2.1 0 - 5 TC E XTERNAL LAB Cholesterol 156 125 - 199 mg/dL TC EXTERNAL LAB Comment: TOTAL CHOLESTEROL INTERPRETATION: Less than 200 mg/dL Desireable 200-239 mg/dL Borderline Greater or Equal to 240 mg/dL High LDL Calculated 73 0 - 100 mg/dL TC EXTERNAL LAB Comment: LDL CHOLESTEROL INTERPRETATION: Less than 100 mg/dL Optimal 100-129 mg/dL Near optimal/above optimal 130-159 mg/dL Borderline High 160-189 mg/dL High Greater or Equal to 190 mg/dL Very High HDL 75 40 - 180 mg/dL TC EXTERNAL LAB Comment: HDL CHOLESTEROL INTERPRETATION: Less than 40 mg/dL Low Greater than 60 mg/dL Desirable Triglycerides 41 0 - 149 mg/dL TC EXTERNAL LAB Comment: TOTAL TRIGLYCERIDE INTERPRETATION: Less than 150 mg/dL Normal 150-199 mg/dL Borderline HIgh 200-499 mg/dL High Greater or Equal to 500 mg/dL Very High Serum 10/28/2021 5:48 AM EDT 10/28/2021 10:29 PM EDT Marion Horn NP CHEMISTRY ORDERABLES Chloe ugalde Result [facility] EX[facility] [address] [place] [address], [facility] from Last 3 Months or Most Recently Relevant to Health Maintenance Insurance MEDICARE Member Subscriber Plan / Payer ( fective 2004-Present) Name:Deisi Garza Member ID:[id number] Relation to Subscriber:Self Name:Deisi Garza Subscriber ID:[id number] Payer ID:[id number] Group ID:Not on file Type:Medicare Address: [facility] [address] [facility] [place] [address] [facility] Advance Directives For more information, please contact: [phone] * Full Code (Latest Code Status on File) Date Activated Date Inactivated Comments 10/28/2021 1:59 AM 12/20/2021 10:53 PM No automated chest compression devices for VAD Patients * Full Code Date Activated Date Inactivated Comments 03/02/2021 5:42 PM 10/27/2021 11:33 PM No automated chest compression devices for VAD Patients * Full Code Date Activated Date Inactivated Comments 03/01/2021 8:27 PM 03/02/2021 5:42 PM * Full Code Date Activated Date Inactivated Comments 12/01/2020 7:45 AM 03/01/2021 2:47 PM * Full Code Date Activated Date Inactivated Comments 07/24/2018 7:06 PM 06/15/2019 11:13 PM Care Teams Office Machine Servicer Relationship Specialty Start Date End Date Luis Fernando Jain MD [address] [place], [place] [id number] PCP - General Family Medicine 09/16/23 Doris Flaherty MD [address] [place] [address] Resident Internal Medicine 09/19/20 Dinesh Torrez MD [address] [facility]. [place], [place] [address] Endocrinology/Diabetes/Met abolism 12/01/20 [place] [address] [facility] [place], [place] [id number] Otolaryngology 01/13/21 Inez Watson, GUIDO [address] [place] [address] Registered Nurse 01/19/21 Delon Zheng MD [address] [facility]. [address] [place] [address] Cardiology 01/27/21 Reyna Leon 02/03/21 Ynes Méndez MA [address] [place] [address] 02/24/21 Deena De La Rosa, GUIDO [address] [place] [address] Registered Nurse 03/01/21 Dawson Cade MD [facility] [address] [place] [address] Cardiology 03/02/21 Francisco Coronado MD [address] [place] [address] [address] [place] [address] Interventional Cardiology 03/03/21 Avery Diehl RN [address] [place] [address] Liquor Clerk 07/03/21 Isidoro Tello MD [address] [facility] [place] [address] Cardiology 07/10/21 Tank Duffy NP [address] [place] [address] [address] [place] [address] Nurse Practitioner Cardiology 07/23/21 Dougie Barber MD [address] [place] [address]. [address] [place] [address] Clinical Cardiac Electrophysiology 08/18/21 Armando Nieves MD [address] [facility] [place] [address] [place] [address] Interventional Cardiology 08/18/21 Gerardo Crawford MD [address] [place] [address] Otolaryngology 10/28/21 Regino Jang NP [address] [place] [address] [address] [place] [address] Cardiology 11/06/21 Acosta Pittman MD [facility] [address] [place] [address] Otolaryngology 11/23/21 Nicole Antony NP [address] [place] [address] [place] [address] Nurse Practitioner Cardiology 11/28/21
--- OUTSIDE RECORDS SUMMARY | 2024-12-31 09:13 | XMS_ITS | Encounter Summary ---
Author Organization [facility] Address [address] [place] [address] Care Team Providers Care Building Services Coordinator Name Role Phone Doris Flaherty MD Unavailable [phone] Dinesh Torrez MD Unavailable +[phone] Roverto Sears MD Unavailable +[phone] Inez Watson RN Unavailable Delon Zheng MD Unavailable [phone] Reyna Leon Unavailable Unavailable Ynes Méndez MA Unavailable [phone] Deena De La Rosa RN Unavailable [phone] Dawson Cade MD Unavailable [phone] Francisco Coronado MD Unavailable Unavailable Avery Diehl RN Unavailable +[phone] Isidoro Tello MD Unavailable [phone] Tank Duffy NP Unavailable +[phone] Dougie Barber MD Unavailable [phone] Armando Nieves MD Unavailable Gerardo Crawford MD Unavailable [phone] Regino Jang NP Unavailable [phone] Acosta Pittman MD Unavailable +[phone] Nicole Antony NP Unavailable [phone] Dae Scanlon DO Primary Care Provider [phone] Luis Fernando Jain MD Primary Care Provider [phone] Reason for Visit * Reason Comments Medications Refill Encounter Details Date Type Department Care Team (Late st Contact Info) Description 12/11/2022 Refill [facility] Physicians - Heart & Vascular, [place] [address] [place] [address] Isidoro Tello MD 1954 [facility]. [address] [place], [place] [id number] Medications Refill Social History Tobacco Use Types Packs/Day Years [...] as of this encounter Functional Status * Are you blind or do you have difficulty seeing, even when wearing glasses? Answer Date of Assessment Author No 03/01/2021 7:05 PM Mel Lemus, GUIDO * Do you have serious difficulty walking or climbing stairs? Answer Date of Assessment Author Yes 03/01/2021 7:05 PM Mel Lemus, RN * Do you have difficulty dressing or bathing? Answer Date of Assessment Author No 03/01/2021 7:05 PM Mel Lemus, GUIDO * Because of a physical, mental, or emotional condition, do you have difficulty doing errands alone such as a visiting a doctor's office or shopping? Answer Date of Assessment Author No 03/01/2021 7:05 PM Mel Lemus, RN documented as of this encounter Mental Status * Because of a physical, mental, or emotional condition, do you have serious difficulty concentrating, remembering, or making decisions? Answer Entry Date Author No 03/01/2021 7:05 PM EDT Mel Marina RN documented in this encounter Plan of Treatment Upcoming Encounters Date Type Department Care Team (Late st Contact Info) Description 03/26/2025 2:00 PM EDT Appointment [facility] Physicians - Heart & Vascular, [place] [address] [place] [address] Isidoro Tello MD 1954 [facility] [place] [address] documented as of this encounter Goals Goal Patient Goal Type Associated Problems Recent Progress Patient-Stated? Author Increase physical activity Lifestyle No Brittani Troy BS MEd documented as of this encounter Visit Diagnoses Diagnosis Hypothyroidism, unspecified type documented in this encounter Additional Health Concerns Assessment Noted Time PHQ-9 Depression Total Score: 1 09/19/19 21 1:21 PM EST documented as of this encounter Care Teams Building Services Coordinator Relationship Specialty Start Date End Date Dae Scanlon DO [address] [address] [address] [place] [address] PCP - General Internal Medicine 03/10/22 09/15/23 Luis Fernando Jain MD [address] [place] [address] PCP - General Family Medicine 09/16/23 Doris Flaherty MD [address] [place] [address] Resident Internal Medicine 09/19/20 Dinesh Torrez MD [address] [place] [address] Endocrinology/Diabetes/Met abolism 12/01/20 [place] [address] [facility]. [address] [place] [address] Otolaryngology 01/13/21 Inez Watson, GUIDO [address] [place] [address] Registered Nurse 01/19/21 Delon Zheng MD [address] [facility]. [address] [place] [address] Cardiology 01/27/21 Reyna Leon 02/03/21 Ynes Méndez MA [address] [place] [address] 02/24/21 Deena De La Rosa, GUIDO [address] [place] [address] Registered Nurse 03/01/21 Dawson Cade MD [address] [facility] [address] [place] [address] Cardiology 03/02/21 Francisco Coronado MD [address] [facility] [address] [place] [address] Interventional Cardiology 03/03/21 Avery Diehl RN [address] [place] [address] Open Pit Quarry Supervisor 07/03/21 Isidoro Tello MD [address] [facility] [place] [address] Cardiology 07/10/21 Tank Duffy NP [address] [facility] [address] [place] [address] Nurse Practitioner Cardiology 07/23/21 Dougie Barber MD [address] [place] [address] Clinical Cardiac Electrophysiology 08/18/21 Armando Nieves MD [address] [place] [address] Interventional Cardiology 08/18/21 Gerardo Crawford MD 1954 [facility]. [address] [place] [address] Otolaryngology 10/28/21 Regino Jang NP [address] [place] [address] Cardiology 11/06/21 Acosta Pittman MD [address] [facility] [address] [place] [address] Otolaryngology 11/23/21 Nicole Antony NP [address] [facility]. [place] [address] Nurse Practitioner Cardiology 11/28/21 documented as of this encounter
--- OUTSIDE RECORDS SUMMARY | 2024-12-31 09:13 | XMS_ITS | Encounter Summary ---
Author Organization [facility] Address [address] [place] [address] Care Team Providers Care Parts Department Supervisor Name Role Phone Doris Flaherty MD Unavailable [phone] Dinesh Torrez MD Unavailable [phone] Roverto Sears MD Unavailable [phone] Inez Watson RN Unavailable Delon Zheng MD Unavailable [phone] Reyna Leon Unavailable Unavailable Ynes Méndez MA Unavailable [phone] Deena De La Rosa RN Unavailable [phone] Dawson Cade MD Unavailable [phone] Francisco Coronado MD Unavailable Unavailable Avery Diehl RN Unavailable [phone] Isidoro Tello MD Unavailable [phone] Tank Duffy NP Unavailable +[phone] Dougie Barber MD Unavailable [phone] Armando Nieves MD Unavailable Gerardo Crawford MD Unavailable [phone] Regino Jang NP Unavailable [phone] Acosta Pittman MD Unavailable [phone] Nicole Antony NP Unavailable [phone] Dae Scanlon DO Primary Care Provider [phone] Luis Fernando Jain MD Primary Care Provider [phone] Reason for Visit * Reason Comments Medications Refill Encounter Details Date Type Department Care Team (Late st Contact Info) Description 04/11/2022 Refill [facility] Physicians - Primary Care, [place] [address] [place] [address] Doris Flaherty MD [address] [place] [address] Medications Refill Social History Tobacco Use Types [...] Author Yes 03/01/2021 7:05 PM Mel Lemus, GUIDO * Do you have difficulty dressing or [...] Description 03/26/2025 2:00 PM EDT Appointment [facility] Physicians - Heart & Vascular, [place] [address] [place] [address] Isidoro Tello MD [address] [facility] [place] [address] documented as of this encounter Goals Goal Patient Goal Type Associated Problems Recent Progress Patient-Stated? 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 documented in this encounter Additional Health Concerns Assessment Noted Time PHQ-9 Depression Total Score: 1 09/19/19 21 1:21 PM EST documented as of this encounter Care Teams Parts Department Supervisor Relationship Specialty Start Date End Date Dae Scanlon DO [address] [address] [address] [place] [id number] PCP - General Internal Medicine 03/10/22 09/15/23 Luis Fernando Jain MD [address] [place] [address] PCP - General Family Medicine 09/16/23 Doris Flaherty MD [address] [place] [address] Resident Internal Medicine 09/19/20 Dinesh Torrez MD [address] [place], [place] [id number] Endocrinology/Diabetes/Met abolism 12/01/20 [place] [address] [facility] [place], [place] [id number] Otolaryngology 01/13/21 Inez Watson, GUIDO [address] [place] [address] Registered Nurse 01/19/21 Delon Zheng MD [address] [facility]. [address] [place] [address] Cardiology 01/27/21 Reyna Leon 02/03/21 Ynes Méndez MA [address] [place] [address] 02/24/21 Deena De La Rosa, GUIDO [address] [place] [address] Registered Nurse 03/01/21 Dawson Cade MD [address] [facility] [address] [place] [address] Cardiology 03/02/21 Francisco Coronado MD [address] [facility] [address] [place] [address] Interventional Cardiology 03/03/21 Avery Diehl RN [address] [place] [address] Literature Professor 07/03/21 Isidoro Tello MD [address] [facility] [place] [address] Cardiology 07/10/21 Tank Duffy NP 2122 [facility] [address] [place] [address] Nurse Practitioner Cardiology 07/23/21 Dougie Barber MD [address] [facility]. [address] [place] [address] Clinical Cardiac Electrophysiology 08/18/21 Armando Nieves MD [address] [place] [address] Interventional Cardiology 08/18/21 Gerardo Crawford MD [address] [facility]. [address] [place] [address] Otolaryngology 10/28/21 Regino Jang NP [facility]. [address] [place] [address] Cardiology 11/06/21 Acosta Pittman MD [facility] [address] [place] [address] Otolaryngology 11/23/21 Nicole Antony NP [address] [place] [address]. [place] [address] Nurse Practitioner Cardiology 11/28/21 documented as of this encounter
--- OUTSIDE RECORDS SUMMARY | 2024-12-31 09:13 | XMS_ITS | Clinical Summary ---
Author Organization [facility] Address [address] [place] [address] Phone Care Team Providers Care Beverage Manager Name Role Phone Pcp, Pending Only MD Primary Care Provider Allergies Active Allergy Reactions Criticality Noted Date Comments Sulfamethoxazole-Trimethoprim Anaphylaxis 01/24 Diphenhydramine Swelling 01/10/2014 Clarithromycin Swelling 01/10/2014 Ciprofloxacin Dizziness,Swelling 01/10/2014 Duloxetine Hcl Swelling 01/24/2014 Hydrocodone-Acetaminophen Confusion 01/10/2014 Punica Swelling 01/10/2014 Tape Adhesive Swelling 01/10/2014 Tetanus Toxoid Swelling 01/10/2014 Medications meclizine (ANTIVERT) 12.5 MG TABS Take 12.5 mg by mouth 3 (three) times daily as needed. Active pantoprazole (PROTONIX) 40 MG TBEC Take 40 mg by mouth daily. Active therapeutic multivitamin with minerals (THERAGRAN-M) TABS Take 1 tablet by mouth daily. Active nitroGLYCERIN (NITRODUR) 0.4 MG/HR PT24 1 patch by Transdermal route daily. Active glucosamine-edel droitin 500-400 MG CAPS Take 1 capsule by mouth 2 (two) times daily. Active ascorbic acid (VITAMIN C) 250 MG TABS Take 1 mg by mouth 3 (three) times daily. Active levothyroxine (SYNTHROID, LEVOTHROID) 50 MCG TABS Take 50 mcg by mouth daily. Active ezetimibe (ZETIA) 10 MG TABS Take 10 mg by mouth daily. Active rosuvastatin (CRESTOR) 20 MG TABS Take 20 mg by mouth daily. Active clopidogrel (PLAVIX) 75 mg TABS Take 75 mg by mouth daily. Active Active Problems Problem Noted Date Diagnosed Date Degenerative disc disease, lumbar 05/12/2017 Compression fracture of L1 lumbar vertebra 01/24 Compression fracture of L2 lumbar vertebra 01/24 Compression fracture of thoracic vertebra 2013 Generalized OA 01/10/2014 Senile osteoporosis 01/10/2014 Hypothyroid 01/10/2014 Encounters Date Type Department Care Team Description 10/11/2024 Telephone [facility] [place] [facility] [address] [place] [address] Delon Cummings MD from Last 3 Months Family History Medical History Relation Name Comments Osteoporosis Maternal Grandmother hip fra ct Relation Name Status Comments Maternal Grandmother Social History Tobacco Use Types Packs/Day Years Used Date Smoking Tobacco: Never Smokeless Tobacco: Never Tobacco Cessation:Counseling Given: Yes Alcohol Use Standard Drinks/Week Comments No 0 [...] Sign Reading Time Taken Comments Blood Pressure 101/57 12/02/2021 11:00 AM EDT Pulse 65 12/02/2021 11:00 AM EDT Temperature 36.2 C (97.1 F) 12/02/2021 11:00 AM EDT Respiratory Rate - - Oxygen Saturation - - Inhaled Oxygen Concentration - - Weight 48.4 kg (106 lb 9.6 oz) 11/13/2020 11:02 AM EDT Height 160 cm (5' 3 ) 11/13/2020 11:02 AM EDT Body Mass Index 18.88 11/13/2020 11:02 AM EDT Plan of Treatment Health Maintenance Due Date Last Done Comments RSV Vaccine (60+ or ) (1 - 1-dose 75+ series) 2014 Influenza Vaccine (Season Ended) 2025 07/08/2023, 06/02/2022, 06/17/2021, Additional history exists DEXA Scan Completed 02/18/2014, 01/18/2014 Shingrix Completed 07/24/2020, 04/07/2020 Pneumococcal 50+ Completed 07/10/2023, , 07/21/2012 HPV Aged Out No longer eligi ble based on patient's age to complete this topic Meningococcal conjugate valent 4 (MCV4) Aged Out No longer eligible based on patient's age to complete this topic RSV Immunization (<20 months) Aged Out No longer eligible based on patient's age to complete this topic Procedures Procedure Name Priority Date/Time Associated Diagnosis Comments DEXA BONE DENSITY,AXIAL SKELETON Routine 01/18/2014 from Last 3 Months or Most Recently Relevant to Health Maintenance Results * DEXA BONE DENSITY,AXIAL SKELETON (01/18/2014) Anatomical Region Laterality Modality Other [facility] Med SPECIAL IMAGING STUDIES Final Re sult from Last 3 Months or Most Recently Relevant to Health Maintenance Insurance MEDICARE SUPPLEMENT SECONDARY ONLY MEDICARE on file Care Teams Beverage Manager Relationship Specialty Start Date End Date Pcp, Pending Only, [place] [address] PCP - General Internal Medicine 06/01/23
--- OUTSIDE RECORDS SUMMARY | 2024-12-31 09:13 | XMS_ITS | Encounter Summary ---
Author Organization [facility] Address [address] [place] [address] Care Team Providers Care Lifestyle Coordinator Name Role Phone Doris Flaherty MD Unavailable [phone] Doris Flaherty MD Primary Care Provider [phone] Dinesh Torrez MD Unavailable [phone] Roverto Sears MD Unavailable [phone] Inez Watson RN Unavailable Delon Zheng MD Unavailable [phone] Reyna Leon Unavailable Unavailable Ynes Méndez MA Unavailable [phone] Deena De La Rosa RN Unavailable [phone] Dawson Cade MD Unavailable [phone] Francisco Coronado MD Unavailable Unavailable Avery Diehl RN Unavailable [phone] Isidoro Tello MD Unavailable [phone] Tank Duffy NP Unavailable [phone] Dougie Barber MD Unavailable [phone] Armando Nieves MD Unavailable Gerardo Crawford MD Unavailable +[phone] Regino Jang [employer] Unavailable [phone] Acosta Pittman MD Unavailable +[phone] Nicole Antony NP Unavailable [phone] Dae Scanlon DO Primary Care Provider [phone] Luis Fernando Jain MD Primary Care Provider [phone] Encounter Details Date Type Department Care Team (Late st Contact Info) Description 03/10/2021 Telephone [facility] Physicians - Heart & Vascular, [facility] [address] [facility] [address] [place] [address] Leatha Laird NCMA Social History Tobacco Use Types Packs/Day Years [...] on file Sexual Orientation Not on file COVID-19 Exposure Response Date Recorded In the last month, have you been in contact with someone who was confirmed or suspected to have Coronavirus / COVID-19? Unable to assess 03/03/2021 4:23 PM EDT documented as of this encounter Functional Status [...] No 03/01/2021 7:05 PM Mel Lemus, RN * Because of a physical, mental, or emotional condition, do you have difficulty doing errands alone such as a visiting a doctor's office or shopping? Answer Date of Assessment Author No 03/01/2021 7:05 PM Mel Lemus M., RN documented as of this encounter Mental Status * Because of a physical, mental, or emotional condition, do you have serious difficulty concentrating, remembering, or making decisions? Answer Entry Date Author No 03/01/2021 7:05 PM EDT Mel Marina, RN documented in this encounter Miscellaneous Notes * Telephone Encounter - Leatha Laird NCMA - 03/10/2021 10:52 AM EDT Returned call to patient. She stated that she will keep apt with Dr. Schaffer on 05/21. And will make an apt at [facility] office if gets worse. documented in this encounter Plan of Treatment Upcoming Encounters Date Type Department Care Team (Late st Contact Info) Description 03/26/2025 2:00 PM EDT Appointment [facility] Physicians - Heart & Vascular, [place] [address] [place] [address] Isidoro Tello MD [address] [facility] [place] [address] documented as of this encounter Goals Goal Patient Goal Type Associated Problems Recent Progress Patient-Stated? Author Increase physical activity Lifestyle No Brittani Troy BS MEd documented as of this encounter Visit Diagnoses Not on filedocumented in this encounter Additional Health Concerns Assessment Noted Time PHQ-9 Depression Total Score: 1 09/19/19 21 1:21 PM EST documented as of this encounter Care Teams Lifestyle Coordinator Relationship Specialty Start Date End Date Doris Flaherty MD [address] [place], [place] [address] PCP - General Internal Medicine 09/19/20 03/09/22 Dae Scanlon DO [address] [address] [address] [place] [address] PCP - General Internal Medicine 03/10/22 09/15/23 Luis Fernando Jain MD [address] [place] [id number] PCP - General Family Medicine 09/16/23 Doris Flaherty MD [address] [place] [address] Resident Internal Medicine 09/19/20 Dinesh Torrez MD 4743 [facility]. [place], [place] [address] Endocrinology/Diabetes/Met abolism 12/01/20 [place] [address] [facility]. [address] [place], [place] [address] Otolaryngology 01/13/21 Inez Watson, GUIDO [address] [place] [address] Registered Nurse 01/19/21 Delon Zheng MD 2122 [facility]. [address] [place] [address] Cardiology 01/27/21 Reyna Leon 02/03/21 Ynes Méndez MA [address] [place] [address] 02/24/21 Deena De La Rosa, GUIDO [address] [place], [place] [address] Registered Nurse 03/01/21 Dawson Cade MD [address] [facility] [address] [place], [place] [address] Cardiology 03/02/21 Francisco Coronado MD [address] [place] [address] Interventional Cardiology 03/03/21 Avery Diehl RN [address] [address] Mechanical Technical Service Specialist 07/03/21 Isidoro Tello MD 1954 [facility]. [address] [place], [place] [address] Cardiology 07/10/21 Tank Duffy NP [address] [place] [address] [address] [place] [address] Nurse Practitioner Cardiology 07/23/21 Dougie Barber MD [address] [place] [address] AVE. [address] [place] [address] Clinical Cardiac Electrophysiology 08/18/21 Armando Nieves MD [address] [place] [address] [place] [address] Interventional Cardiology 08/18/21 Gerardo Crawford MD [address] [facility]. [address] [place] [address] Otolaryngology 10/28/21 Regino Jang NP [address] [place] [address] Ave[address] [place] [address] Cardiology 11/06/21 Acosta Pittman MD [facility] [address] [place] [address] Otolaryngology 11/23/21 Nicole Antony NP [address] [place] [place] [address] Nurse Practitioner Cardiology 11/28/21 documented as of this encounter
--- OUTSIDE RECORDS SUMMARY | 2024-12-31 09:13 | XMS_ITS | Encounter Summary ---
Author Organization [facility] Address [address] [place] [address] Care Team Providers Care Hunter Name Role Phone Doris Flaherty MD Unavailable [phone] Doris Flaherty MD Primary Care Provider [phone] Dinesh Torrez MD Unavailable +[phone] Roverto Sears MD Unavailable [phone] Inez Watson RN Unavailable Delon Zheng MD Unavailable +[phone] Reyna Leon Unavailable Unavailable Ynes Méndez MA Unavailable [phone] Deena De La Rosa RN Unavailable [phone] Dawson Cade MD Unavailable [phone] Francisco Coronado MD Unavailable Unavailable Avery Diehl RN Unavailable +[phone] Isidoro Tello MD Unavailable [phone] Tank Duffy NP Unavailable [phone] Dougie Barber MD Unavailable [phone] Armando Nieves MD Unavailable Gerardo Crawford MD Unavailable +[phone] Regino Jang SCARF GLUER Unavailable +[phone] Acosta Pittman MD Unavailable +[phone] Nicole Antony NP Unavailable [phone] Dae Scanlon DO Primary Care Provider [phone] Luis Fernando Jain MD Primary Care Provider [phone] Encounter Details Date Type Department Care Team (Late st Contact Info) Description 01/13/2021 Orders Only [facility] Physicians - Ear, Nose & Throat, [place] [address] [facility] [address] [place] [address] [place] [address] [facility] [place], [place] [id number] Social History Tobacco Use Types Packs/Day Years [...] or suspected to have Coronavirus / COVID-19? No / Unsure 01/14/2021 12:27 PM EDT documented as of this encounter Functional Status * Are you blind or do you have difficulty seeing, even when wearing glasses? Answer Date of Assessment Author No 12/01/2020 7:33 AM EDT Rohan Horne RN * Do you have serious difficulty walking or climbing stairs? Answer Date of Assessment Author No 12/01/2020 7:33 AM EDT Rohan Horne, GUIDO * Do you have difficulty dressing or bathing? Answer Date of Assessment Author No 12/01/2020 7:33 AM EDT Rohan Horne, GUIDO * Because of a physical, mental, or emotional condition, do you have difficulty doing errands alone such as a visiting a doctor's office or shopping? Answer Date of Assessment Author No 12/01/2020 7:33 AM EDT Rohan Horne RN documented as of this encounter Mental Status * Because of a physical, mental, or emotional condition, do you have serious difficulty concentrating, remembering, or making decisions? Answer Entry Date Author No 12/01/2020 7:33 AM EDT Rohan Horne RN documented in this encounter Plan of Treatment Upcoming Encounters Date Type Department Care Team (Late st Contact Info) Description 03/26/2025 2:00 PM EDT Appointment [facility] Physicians - Heart & Vascular, [place] [address] [place] [address] Isidoro Tello MD [address] [facility] [place] [address] documented as of this encounter Procedures Procedure Name Priority Date/Time Associated Diagnosis Comments [facility] ENT SURGERY ORDER Routine 01/13/2021 documented in this encounter Results * [facility] ENT SURGERY ORDER (01/13/2021) Roverto Sears MD [facility] ORDERS Chloe l Result documented in this encounter Visit Diagnoses Not on filedocumented in this encounter Additional Health Concerns Assessment Noted Time PHQ-9 Depression Total Score: 1 09/19/19 21 1:21 PM EST documented as of this encounter Care Teams Hunter Relationship Specialty Start Date End Date Doris Flaherty MD [address] [place] [address] PCP - General Internal Medicine 09/19/20 03/09/22 Dae Scanlon DO [address] [address] [address] [place] [address] PCP - General Internal Medicine 03/10/22 09/15/23 Luis Fernando Jain MD [address] [place] [id number] PCP - General Family Medicine 09/16/23 Doris Flaherty MD [address] [place] [address] Resident Internal Medicine 09/19/20 Dinesh Torrez MD [address] [facility] [place], [place] [id number] Endocrinology/Diabetes/Met abolism 12/01/20 [place] [address] [facility] [place], [place] [id number] Otolaryngology 01/13/21 Inez Watson, GUIDO [address] [place] [address] Registered Nurse 01/19/21 Delon Zheng MD [address] [facility]. [address] [place] [address] Cardiology 01/27/21 Reyna Leon 02/03/21 Ynes Méndez MA [address] [place] [address] 02/24/21 Deena De La Rosa, GUIDO [address] [place], [place] [address] Registered Nurse 03/01/21 Dawson Cade MD [address] [facility] [address] [place] [address] Cardiology 03/02/21 Francisco Coronado MD [address] [place] [address] Interventional Cardiology 03/03/21 Avery Diehl RN [address] [address] Waitstaff 07/03/21 Isidoro Tello MD [address] [facility] [place] [id number] Cardiology 07/10/21 Tank Duffy NP [facility] [address] [place] [address] Nurse Practitioner Cardiology 07/23/21 Dougie Barber MD [address] [place] [address] Clinical Cardiac Electrophysiology 08/18/21 Armando Nieves MD [address] [place], [place] [id number] Interventional Cardiology 08/18/21 Gerardo Crawford MD [address] [place] [address] Otolaryngology 10/28/21 Regino Jang NP [facility] [place] [address] Cardiology 11/06/21 Acosta Pittman MD [facility] [address] [place] [address] Otolaryngology 11/23/21 Nicole Antony NP [address] [place] [address] Nurse Practitioner Cardiology 11/28/21 documented as of this encounter
--- OUTSIDE RECORDS SUMMARY | 2024-12-31 09:13 | XMS_ITS | Encounter Summary ---
Author Organization [facility] Address [address] [place] [address] Care Team Providers Care Firer Marine Name Role Phone Doris Flaherty MD Unavailable [phone] Dinesh Torrez MD Unavailable [phone] Roverto Sears MD Unavailable +[phone] Inez Watson RN Unavailable Delon Zheng MD Unavailable +[phone] Reyna Leon Unavailable Unavailable Ynes Méndez MA Unavailable [phone] Deena De La Rosa RN Unavailable [phone] Dawson Cade MD Unavailable [phone] Francisco Coronaod MD Unavailable Unavailable Avery Diehl RN Unavailable [phone] Isidoro Tello MD Unavailable [phone] Tank Duffy NP Unavailable +- [phone] Dougie Barber MD Unavailable [phone] Armando Nieves MD Unavailable Gerardo Crawford MD Unavailable [phone] Regino Jang NP Unavailable Acosta Pittman MD Unavailable +[phone] Nicole Antony NP Unavailable [phone] Dae Scanlon DO Primary Care Provider [phone] Luis Fernando Jain MD Primary Care Provider [phone] Reason for Visit * Reason Comments Medications Refill Encounter Details Date Type Department Care Team (Late st Contact Info) Description 04/28/2023 Refill [facility] Physicians - Heart & Vascular, [facility] [address] [facility] [address] Isidoro Tello MD 1954 [facility]. [address] [place] [address] Medications Refill Social History Tobacco Use Types [...] No 03/01/2021 7:05 PM Mel Lemus, GUIDO documented as of this encounter Mental Status * Because of a physical, mental, or emotional condition, do you have serious difficulty concentrating, remembering, or making decisions? Answer Entry Date Author No 03/01/2021 7:05 PM EDT Mel Marina RN documented in this encounter Plan of Treatment Upcoming Encounters Date Type Department Care Team (Late st Contact Info) Description 03/26/2025 2:00 PM EDT Appointment [facility] Physicians - Heart & Vascular, [place] [address] [place] [address] Isidoro Tello MD 5 [facility] [place] [address] documented as of this encounter [...] documented as of this encounter Care Teams Firer Marine Relationship Specialty Start Date End Date Dae Scanlon DO [address] [address] [address] [place] [phone] PCP - General Internal Medicine 03/10/22 09/15/23 Luis Fernando Jain MD [address] [place] [address] PCP - General Family Medicine 09/16/23 Doris Flaherty MD [address] [place] [address] Resident Internal Medicine 09/19/20 Dinesh Torrez MD [address] [facility] [place] [address] Endocrinology/Diabetes/Met abolism 12/01/20 [place] [address] [facility] [place], [place] [id number] Otolaryngology 01/13/21 Inez Watson, GUIDO [address] [place] [address] Registered Nurse 01/19/21 Delon Zheng MD 2[address] [facility]. [address] [place] [address] Cardiology 01/27/21 Reyna Leon 02/03/21 Ynes Méndez MA [address] [place] [address] 02/24/21 Deena De La Rosa, GUIDO [address] [place] [address] Registered Nurse 03/01/21 Dawson Cade MD [address] [facility] [address] [place] [address] Cardiology 03/02/21 Francisco Coronado MD [address] [facility] [address] [place] [address] Interventional Cardiology 03/03/21 Avery Diehl RN [address] [place] [address] Finishing Powder Press Operator 07/03/21 Isidoro Tello MD [address] [facility] [place] [address] Cardiology 07/10/21 Tank Duffy NP 2122 [facility] [address] [place] [address] Nurse Practitioner Cardiology 07/23/21 Dougie Barber MD [address] [place] [address] Clinical Cardiac Electrophysiology 08/18/21 Armando Nieves MD [address] [place] [address] [place] [address] Interventional Cardiology 08/18/21 Gerardo Crawford MD 1954 [facility]. [address] [place] [address] Otolaryngology 10/28/21 Regino Jang NP [address] [place] [address] Cardiology 11/06/21 Acosta Pittman MD [address] [facility] [address] [place] [address] Otolaryngology 11/23/21 Nicole Antony NP [address] [facility] [address] Nurse Practitioner Cardiology 11/28/21 documented as of this encounter
--- OUTSIDE RECORDS SUMMARY | 2024-12-31 09:13 | XMS_ITS | Encounter Summary ---
Author Organization [facility] Address [address] [place] [address] Care Team Providers Care Hearings Reporter Name Role Phone Doris Flhaerty MD Unavailable [phone] Dinesh Torrez MD Unavailable [phone] Roverto Sears MD Unavailable +[phone] Inez Watson RN Unavailable Delon Zheng MD Unavailable +[phone] Reyna Leon Unavailable Unavailable Ynes Méndez MA Unavailable [phone] Deena De La Rosa RN Unavailable [phone] Dawson Cade MD Unavailable [phone] Francisco Coronado MD Unavailable Unavailable Avery Diehl RN Unavailable [phone] Isidoro Tello MD Unavailable [phone] Tank Duffy NP Unavailable +- [phone] Dougie Barber MD Unavailable Armando Nieves MD Unavailable Gerardo Crawford MD Unavailable [phone] Regino Jang NP Unavailable Acosta Pittman MD Unavailable +[phone] Nicole Antony NP Unavailable [phone] Dae Scanlon DO Primary Care Provider [phone] Luis Fernando Jain MD Primary Care Provider [phone] Reason for Visit * Reason Comments Medications Refill Encounter Details Date Type Department Care Team (Late st Contact Info) Description 10/26/2022 Refill [facility] Physicians - Heart & Vascular, [place] [address] [place] [address] Isidoro Tello MD 1954 [facility]. [address] [place], [place] [id number] Medications Refill Social History Tobacco Use Types [...] Description 03/26/2025 2:00 PM EDT Appointment [facility] Physicians - Heart & Vascular, [place] [address] [place] [address] Isidoro Tello MD 1954 [facility] [place] [address] documented as of this encounter Goals Goal Patient Goal Type Associated Problems Recent Progress Patient-Stated? Author Increase physical activity Lifestyle No Brittani [place] BS MEd documented as of this encounter Visit Diagnoses Diagnosis Coronary artery disease involving [place] coronary artery of [place] heart without angina pectoris documented in this encounter Additional Health Concerns Assessment Noted Time PHQ-9 Depression Total Score: 1 09/19/19 21 1:21 PM EST documented as of this encounter Care Teams Hearings Reporter Relationship Specialty Start Date End Date Dae Scanlon DO [address] [address] [address] [place] [address] PCP - General Internal Medicine 03/10/22 09/15/23 Luis Fernando Jain MD [address] [place] [address] PCP - General Family Medicine 09/16/23 Doris Flaherty MD [address] [place] [address] Resident Internal Medicine 09/19/20 Dinesh Torrez MD [address] [place], [place] [id number] Endocrinology/Diabetes/Met abolism 5/10/21 [place] [address] [facility]. [address] [place], [place] [id number] Otolaryngology 01/13/21 Inez Watson, GUIDO [address] [place] [address] Registered Nurse 01/19/21 Delon Zheng MD 2122 [facility]. [address] [place] [address] Cardiology 01/27/21 Reyna Leon 02/03/21 Ynes Méndez MA [address] [place] [address] 02/24/21 Deena De La Rosa, GUIDO [address] [place] [address] Registered Nurse 03/01/21 Dawson Cade MD 2122 [facility] [address] [place] [address] Cardiology 03/02/21 Francisco Coronado MD 2[address] [facility] [address] [place] [address] Interventional Cardiology 03/03/21 Avery Diehl RN [address] [place] [address] Plate Put In Worker 07/03/21 Isidoro Tello MD 1954 [facility] [place] [address] Cardiology 07/10/21 Tank Duffy NP [facility] [address] [place] [address] Nurse Practitioner Cardiology 07/23/21 Dougie Barber MD [address] [place] [address] Clinical Cardiac Electrophysiology 08/18/21 Armando Nieves MD [address] [place] [address] [place] [address] Interventional Cardiology 08/18/21 Gerardo Crawford MD 1954 [facility]. [address] [place] [address] Otolaryngology 10/28/21 Regino Jang NP [address] [facility] [place] [address] Cardiology 11/06/21 Acosta Pittman MD [facility] [address] [place] [address] Otolaryngology 11/23/21 Nicole Antony NP 9 [facility] [address] Nurse Practitioner Cardiology 11/28/21 documented as of this encounter
--- OUTSIDE RECORDS SUMMARY | 2024-12-31 09:13 | XMS_ITS | Encounter Summary ---
Author Organization [facility] Address [address] [place] [address] Care Team Providers Care Management Recruiter Name Role Phone Doris Flaherty MD Unavailable [phone] Dinesh Torrez MD Unavailable +[phone] Roverto Sears MD Unavailable +[phone] Inez Watson RN Unavailable Delon Zheng MD Unavailable +[phone] Reyna Leon Unavailable Unavailable Ynes Méndez MA Unavailable +[phone] Deena De La Rosa RN Unavailable [phone] Dawson Cade MD Unavailable Francisco Coronado MD Unavailable Unavailable Avery Diehl RN Unavailable [phone] Isidoro Tello MD Unavailable [phone] Tank Duffy NP Unavailable +- [phone] Dougie Barber MD Unavailable [phone] Armando Nieves MD Unavailable Gerardo Crawford MD Unavailable +[phone] Regino Jang NP Unavailable Acosta Pittman MD Unavailable +[phone] Nicole Antony NP Unavailable [phone] Dae Scanlon DO Primary Care Provider [phone] Luis Fernando Jain MD Primary Care Provider [phone] Reason for Visit * Reason Onset Date Comments Other 10/22/2022 Encounter Details Date Type Department Care Team (Late st Contact Info) Description 10/22/[address] [facility] Physicians - Heart & Vascular, [facility] [email or web address] [facility] [place] [address] Isidoro Tello MD 1954 [facility]. [address] [facility] [place] [address] Other Social History Tobacco Use Types Packs/Day Years [...] Assessment Author No 03/01/2021 7:05 PM Mel Lmeus, GUIDO * Because of a physical, mental, [...] encounter Miscellaneous Notes * Telephone Encounter - Ashley Jiménez - 10/22/2022 12:14 PM EDT Patient called and asked that you please call her. documented in this encounter Plan of Treatment Upcoming Encounters Date Type Department Care Team (Late st Contact Info) Description 03/26/2025 2:00 PM EDT Appointment [facility] Physicians - Heart & [place] [address] [place] [address] Isidoro Tello MD 1954 [facility] [place] [address] documented as of this encounter Goals Goal Patient Goal Type Associated Problems Recent Progress Patient-Stated? Author Increase physical activity Lifestyle No Brittani [place] BS MEd documented as of this encounter Visit Diagnoses Not on filedocumented in this encounter Additional Health Concerns Assessment Noted Time PHQ-9 Depression Total Score: 1 09/19/19 21 1:21 PM EST documented as of this encounter Care Teams Management Recruiter Relationship Specialty Start Date End Date Dae Scanlon DO [address] [address] [address] [place] [phone] PCP - General Internal Medicine 03/10/22 09/15/23 Luis Fernando Jain MD [address] [place] [address] PCP - General Family Medicine 09/16/23 Doris Flaherty MD [address] [place] [address] Resident Internal Medicine 09/19/20 Dinesh Torrez MD 4743 [facility]. [place], [place] [address] Endocrinology/Diabetes/Met abolism 12/01/20 [place] [address] [facility]. [address] [place], [place] [address] Otolaryngology 01/13/21 Inez Watson, GUIDO [address] [place] [address] Registered Nurse 01/19/21 Delon Zheng MD [address] [place] [address] Cardiology 01/27/21 Reyna Leon 02/03/21 Ynes Méndez MA [address] [place] [address] 02/24/21 Deena De La Rosa, GUIDO [address] [place] [address] Registered Nurse 03/01/21 Dawson Cade MD 2122 [facility] [address] [place] [address] Cardiology 03/02/21 Francisco Coronado MD [address] [place] [address] Interventional Cardiology 03/03/21 Avery Diehl RN [address] [place] [address] Sql Database Developer 07/03/21 Isidoro Tello MD [facility] [place] [id number] Cardiology 07/10/21 Tank Duffy NP [address] [place] [address] [address] [place] [address] Nurse Practitioner Cardiology 07/23/21 Dougie Barber MD [facility] [place] [address] Clinical Cardiac Electrophysiology 08/18/21 Armando Nieves MD [address] [place] [address] [place] [address] Interventional Cardiology 08/18/21 Gerardo Crawford MD [facility]. [address] [place] [address] Otolaryngology 10/28/21 Regino Jang NP [facility] [address] [place] [address] Cardiology 11/06/21 Acosta Pittman MD [address] [place] [address] [address] [place] [address] Otolaryngology 11/23/21 Nicole Antony NP [address] [place] [address] Ave[place] [address] Nurse Practitioner Cardiology 11/28/21 documented as of this encounter
--- OUTSIDE RECORDS SUMMARY | 2024-12-31 09:13 | XMS_ITS | Encounter Summary ---
Author Organization [facility] Address [address] [place] [address] Care Team Providers Care Crop Farmers Name Role Phone Doris Flaherty MD Unavailable [phone] Doris Flaherty MD Primary Care Provider [phone] Dinesh Torrez MD Unavailable [phone] Roverto Sears MD Unavailable [phone] Inez Watson RN Unavailable Delon Zheng MD Unavailable [phone] Reyna [place] Unavailable Unavailable Ynes Méndez MA Unavailable [phone] Deena De La Rosa RN Unavailable [phone] Dawson Cade MD Unavailable [phone] Francisco Coronado MD Unavailable Unavailable Avery Diehl RN Unavailable [phone] Isidoro Tello MD Unavailable [phone] Tank Duffy NP Unavailable [phone] Dougie Barber MD Unavailable [phone] Armando Nieves MD Unavailable Gerardo rCawford MD Unavailable +[phone] Regino Jang REMARKETING MANAGER Unavailable [phone] Acosta Pittman MD Unavailable +[phone] Nicole Antony NP Unavailable [phone] Dae Scanlon LivanChristianne BROCK Primary Care Provider [phone] Luis Fernando Jain MD Primary Care Provider [phone] Reason for Visit * Reason Onset Date Comments Patient Status Update 03/02/2021 Encounter Details Date Type Department Care Team (Late st Contact Info) Description 03/02/2021 Telephone [facility] Physicians - Heart & Vascular, [place] [address] [facility] 137 [place] [address] Dawson Cade MD [address] [facility] [address] [place] [address] Patient Status Update Social History Tobacco Use Types Packs/Day Years [...] of Assessment Author No 03/01/2021 7:05 PM EDT Mel Marina, RN * Do you have serious difficulty walking or climbing stairs? Answer Date of Assessment Author Yes 03/01/2021 7:05 PM EDT Mel Marina, RN * Do you have difficulty dressing or bathing? Answer Date of Assessment Author No 03/01/2021 7:05 PM EDT Mel Marina, RN * Because of a physical, mental, or emotional condition, do you have difficulty doing errands alone such as a visiting a doctor's office or shopping? Answer Date of Assessment Author No 03/01/2021 7:05 PM EDT Mel Marina, RN documented as of this encounter Mental Status * Because of a physical, mental, or emotional condition, do you have serious difficulty concentrating, remembering, or making decisions? Answer Entry Date Author No 03/01/2021 7:05 PM EDT Mel Marina, RN documented in this encounter Miscellaneous Notes * Telephone Encounter - Kayla Campuzano - 03/02/2021 1:59 PM EDT PT's food service sales representatives Dr. Torrez is trying to get a hold of Dr. Cade to update him about PT. documented in this encounter Plan of Treatment Upcoming Encounters Date Type Department Care Team (Late st Contact Info) Description 03/26/2025 2:00 PM EDT Appointment [facility] Physicians - Heart & Vascular, [place] [address] [place] [address] Isidoro Tello MD 1954 [facility] [place] [address] [place] [address] documented as of this encounter Goals Goal Patient Goal Type Associated Problems Recent Progress Patient-Stated? Author Increase physical activity Lifestyle No Brittani Troy, BS MEd documented as of this encounter Visit Diagnoses Not on filedocumented in this encounter Additional Health Concerns Assessment Noted Time PHQ-9 Depression Total Score: 1 09/19/19 21 1:21 PM EST documented as of this encounter Care Teams Crop Farmers Relationship Specialty Start Date End Date Doris Flaherty MD [address] [place] [address] PCP - General Internal Medicine 09/19/20 03/09/22 Dae Scanlon DO [address] [address] [address] [place] [address] PCP - General Internal Medicine 03/10/22 09/15/23 Luis Fernando Jain MD [address] [place], [place] [id number] PCP - General Family Medicine 09/16/23 Doris Flaherty MD [address] [place] [address] Resident Internal Medicine 09/19/20 Dinesh Torrez MD 4743 [facility] [place], [place] [address] Endocrinology/Diabetes/Met abolism 12/01/20 [place] [address] [facility] [place], [place] [address] Otolaryngology 01/13/21 Inez Watson, [address] [place], [place] [address] Registered Nurse 01/19/21 Delon Zheng MD [address] [facility] [place], [place] [address] Cardiology 01/27/21 Reyna [place] 02/03/21 Ynes Méndez MA [address] [place], [place] [address] 02/24/21 Deena De La Rosa, GUIDO [address] [place], [place] [address] Registered Nurse 03/01/21 Dawson Cade MD [address] [place] [address] Cardiology 03/02/21 Francisco Coronado MD [address] [place] [address] Interventional Cardiology 03/03/21 Avery Diehl RN [address] [address] Desizing Machine Back Tender 07/03/21 Isidoro Tello MD [address] [place] [address] Cardiology 07/10/21 Tank Duffy NP [address] [place] [address] Nurse Practitioner Cardiology 07/23/21 Dougie Barber MD [address] [place] [address] Clinical Cardiac Electrophysiology 08/18/21 Armando Nieves MD [address] [place] [address] Interventional Cardiology 08/18/21 Gerardo Crawford MD [address] [place], [place] [address] Otolaryngology 10/28/21 Regino Jang NP [address] [place] [address] Cardiology 11/06/21 Acosta Pittman MD 2123 [facility] 209 [place] [address] Otolaryngology 11/23/21 Nicole Antony NP [address] [place] [address] Lab [place], [place] [address] Nurse Practitioner Cardiology 11/28/21 documented as of this encounter
--- OUTSIDE RECORDS SUMMARY | 2024-12-31 09:13 | XMS_ITS | Encounter Summary ---
Author Organization [facility] Address [address] [place] [address] Care Team Providers Care Covering And Lining Supervisor Name Role Phone Doris Flaherty MD Unavailable [phone] Dinesh Torrez MD Unavailable [phone] Roverto Sears MD Unavailable [phone] Inez Watson RN Unavailable Delon Zheng MD Unavailable [phone] Reyna [place] Unavailable Unavailable Ynes Méndez MA Unavailable [phone] Deena De La Rosa RN Unavailable [phone] Dawson Cade MD Unavailable [phone] Francisco Coronado MD Unavailable Unavailable Avery Diehl RN Unavailable [phone] Isidoro Tello MD Unavailable [phone] Tank Duffy NP Unavailable +[phone] Dougie Barber MD Unavailable [phone] Armando Nieves MD Unavailable Gerardo Crawford MD Unavailable [phone] Regino Jang NP Unavailable +- [phone] Acosta Pittman MD Unavailable [phone] Nicole Antony NP Unavailable [phone] Luis Fernando Jain MD Primary Care Provider [phone] Reason for Visit * Reason Onset Date Comments Nausea 12/24/2024 More than a week Encounter Details Date Type Department Care Team (Late st Contact Info) Description 12/24/[address] [facility] Physicians - Heart & Vascular, [place] [address] [place] [address] Isidoro Tello MD [address] [place] [id number] Nausea (More than a week) Social History Tobacco Use Types Packs/Day Years [...] encounter Miscellaneous Notes * Telephone Encounter - PreetiTyrel Csotello - 12/24/2024 4:51 PM EDT Spoke to pt and got her r/s to 12/26. * Telephone Encounter - Jaylene Schwartz RN - 12/24/2024 2:41 PM EDT Spoke to pt. She reports that for 8 days she's been sick to her stomach. Told pt she will need to call her PCP. * Telephone Encounter - Yanet Teran - 12/24/2024 2:35 PM EDT Pt called and wanted to speak to Dr Tello, so I am passing along the pt's concerns. Pt has beensick more nauseous for more than a week and has to lay down. Pt would like a call back @ [phone] documented in this encounter Plan of Treatment Upcoming Encounters Date Type Department Care Team (Late st Contact Info) Description 03/26/2025 2:00 PM EDT Appointment [facility] Physicians - Heart & Vascular, [place] [address] [place] [address] Isidoro Tello MD [address] [place] [address] documented as of this encounter Goals Goal Patient Goal Type Associated Problems Recent Progress Patient-Stated? Author Increase physical activity Lifestyle No Brittani Troy BS MEd documented as of this encounter Visit Diagnoses Not on filedocumented in this encounter Additional Health Concerns Assessment Noted Time PHQ-9 Depression Total Score: 1 09/19/19 21 1:21 PM EST documented as of this encounter Care Teams Covering And Lining Supervisor Relationship Specialty Start Date End Date Luis Fernando Jain MD [address] [place] [address] PCP - General Family Medicine 09/16/23 Doris Flaherty MD [address] [place] [address] Resident Internal Medicine 09/19/20 Dinesh Torrez MD [address] [place], [place] [address] Endocrinology/Diabetes/Met abolism 12/01/20 [place] [address] [facility]. [address] [place], [place] [address] Otolaryngology 01/13/21 Inez Watson RN [address] [place] [address] Registered Nurse 01/19/21 Delon Zheng MD 2[address] [facility]. [address] [place] [address] Cardiology 01/27/21 Reyna [place] 02/03/21 Ynes Méndez MA [address] [place], [place] [address] 02/24/21 Deena De La Rosa, GUIDO [address] [place], [place] [address] Registered Nurse 03/01/21 Dawson Cade MD [address] [facility] [address] [place] [address] Cardiology 03/02/21 Francisco Coronado MD [address] [place] [address] [address] [place] [address] Interventional Cardiology 03/03/21 Avery Diehl RN [address] [facility] [address] Wood Cabinetmaker 07/03/21 Isidoro Tello MD 1954 [facility] [place] [address] Cardiology 07/10/21 Tank Duffy NP [address] [place] [address] [address] [place] [address] Nurse Practitioner Cardiology 07/23/21 Dougie Barber MD [address] [place], [place] [address]E. [address] [place] [address] Clinical Cardiac Electrophysiology 08/18/21 Armando Nieves MD 75[address] [facility] [place] [address] Interventional Cardiology 08/18/21 Gerardo Crawford MD [address] [facility]. [address] [place] [address] Otolaryngology 10/28/21 Regino Jang NP [address] [place], [place] [address]. [address] [place] [address] Cardiology 11/06/21 Acosta Pittman MD [address] [place] [address] [address] [place] [address] Otolaryngology 11/23/21 Nicole Antony NP [address] [place] [place] [address] Nurse Practitioner Cardiology 11/28/21 documented as of this encounter
--- OUTSIDE RECORDS SUMMARY | 2024-12-31 09:13 | XMS_ITS | Encounter Summary ---
Author Organization [facility] [place] [address] Care Team Providers Care Bdc Manager Name Role Phone Jose Roberto Babb MD Unavailable Lenin Santa MD Unavailable [phone] Reason for Visit * Reason Onset Date Comments Other 11/08/2024 fyi Encounter Details Date Type Department Care Team (Late st Contact Info) Description 11/08/2024 Telephone [facility] [place] [address] [facility] [address] [place] [address] Dae Scanlon, DO [address] [facility] [address] [place] [address] Other (fyi) Social History Tobacco Use Types Packs/Day Years [...] Answer Date Recorded PHQ-2 Score 2 01/02/2020 [facility] Occupat ional [facility] - Occupational Stress Questionnaire Answer Date Recorded [...] Miscellaneous Notes * Telephone Encounter - Ciera Bloom MA - 11/08/2024 2:14 PM EDT Verified and updated * Telephone Encounter - Cheryle Baxter RMA - 11/08/2024 1:55 PM EDT Please call and confirm that she is no longer our pt and remove Dr Scanlon as pcp. * Telephone Encounter - Tiffanie Hudson - 11/08/2024 11:20 AM EDT Select the most appropriate reason for this telephone message: Other Who is calling (name & relationship to patient if not the patient): Patient What is needed OR why are they calling: FYI-Pt declined appointment. Pt called requesting appointment for pain in arms and pain in heels that has been going on for 3 weeks. Pt states pain is very badin the morning and then gets better throughout the day. Pt declined appointment with PCP states she does not see this provider any longer due to being too far away and then requested to schedule with Dr. Jain and then requested to schedule with Asher. Pt provided Asher phone number. When is this needed by: today Where does this information need to go: PCP Return Method of Communication: N/A Additional information:N/A documented in this encounter Plan of Treatment Upcoming Encounters Date Type Department Care Team (Late st Contact Info) Description 01/01/2025 12:40 PM EDT Office Visit [facility] [address] [employer] [place] [address] Ciera Noguera DO [address] [place], [place] [id number] 01/07/2025 1:00 PM EDT Office Visit [facility] [address] [place] [address] Gerardo Gupta MD [address] [place] [address] 01/31/2025 11:45 AM EDT Office Visit [facility] [place] [address] [place] [address] Gerardo Layne, DPM [address] [address] 02/08/2025 11:[address] [facility] [address] [place] [address] Dinesh Torrez MD [address] [place], [place] [address] 02/08/2025 11:30 AM EDT Appointment [facility] [address] [place] [address] Dinesh Torrez MD [address] [place], [place] [id number] documented as of this encounter Goals Goal [...] documented as of this encounter Care Teams Bdc Manager Relationship Specialty Start Date End Date Jose Roberto Babb MD Surgeon Surgery-Vascular Surgery 08/27/11 Lenin Santa MD [address] [place] [address] Internal Medicine-Rheumatology 07/01/14 documented as of this encounter
--- OUTSIDE RECORDS SUMMARY | 2024-12-31 09:13 | XMS_ITS | Referral Summary ---
Author Organization [facility] Address [address] [place] [address] Phone Care Team Providers Care Credit Rating Checker Name Role Phone Pcp, Pending Only MD Primary Care Provider Encounters Date Type Department Care Team Description 10/11/2024 Telephone [facility] [address] [place] [address] Delon Cummings MD from Last 3 Months Allergies Active Allergy Reactions Criticality Noted Date [...] OA 01/10/2014 Senile osteoporosis 01/10/2014 Hypothyroid 01/10/2014 Social History Tobacco Use Types Packs/Day Years [...] 11/13/2020 11:02 AM EDT Plan of Treatment Not on file Procedures Procedure Name Priority Date/Time Associated Diagnosis Comments DEXA BONE DENSITY,AXIAL SKELETON Routine 01/18/2014 from Last 3 Months or Most Recently Relevant to Health Maintenance Results * DEXA BONE DENSITY,AXIAL SKELETON (01/18/2014) Anatomical Region Laterality Modality Other [facility] Med SPECIAL IMAGING STUDIES Final Re sult from Last 3 Months or Most Recently Relevant to Health Maintenance Administered Medications Insurance [employer] MEDICARE SUPPLEMENT SECONDARY ONLY MEDICARE on file Care Teams Credit Rating Checker Relationship Specialty Start Date End Date Pcp, Pending Only, [place] [address] PCP - General Internal Medicine 06/01/23
--- OUTSIDE RECORDS SUMMARY | 2024-12-31 09:13 | XMS_ITS | Encounter Summary ---
Author Organization [facility] Address [address] [place] [address] Care Team Providers Care Solar Manufacturer'S Representative Name Role Phone Doris Flaherty MD Unavailable [phone] Dinesh Torrez MD Unavailable [phone] Roverto Sears MD Unavailable [phone] Inez Watson RN Unavailable Delon Zheng MD Unavailable [phone] Reyna [place] Unavailable Unavailable Ynes Méndez MA Unavailable [phone] Deena De La Rosa RN Unavailable [phone] Dawson Cade MD Unavailable [phone] Francisco Coronado MD Unavailable Unavailable Avery Diehl RN Unavailable [phone] Isidoro Tello MD Unavailable [phone] Tank Duffy NP Unavailable +- [phone] Dougie Barber MD Unavailable [phone] Armando Nieves MD Unavailable Gerardo Crawford MD Unavailable [phone] Regino Jang NP Unavailable Acosta Pittman MD Unavailable [phone] Nicole Antony NP Unavailable [phone] Luis Fernando Jain MD Primary Care Provider [phone] Reason for Visit * Reason Onset Date Comments A-Fib 05/30/2024 Encounter Details Date Type Department Care Team (Late st Contact Info) Description 05/30/2024 Telephone [facility] Physicians - Heart & Vascular, [place] [address] [place] [address] Isidoro Tello MD [address] [place] [id number] A-Fib Social History Tobacco Use Types Packs/Day Years [...] encounter Miscellaneous Notes * Telephone Encounter - Jaylene Schwartz RN - 05/31/2024 9:50 AM EST Pt says no more symptoms feels like she is out of afib. She states she missed her last appt with Omer due to being sick and would like to reschedule. Routed to scheduling * Telephone Encounter - Jaylene Schwartz RN - 05/30/2024 3:07 PM EST Pt called no VM set up. Dr. Tello is on clinical service all week * Telephone Encounter - Tyrel Álvarez - 05/30/2024 3:02 PM EST Patient thinks she is in a-fib. Patient reports that she gets heaviness in the chest that comes andgoes. Patient declined seeing DROP PIT WORKER. Patient only wants to see Dr. Tello. Please call patient #[phone] documented in this encounter Plan of Treatment Upcoming Encounters Date Type Department Care Team (Late st Contact Info) Description 03/26/2025 2:00 PM EDT Appointment [facility] Physicians - Heart & Vascular, [place] [address] [place] [address] Isidoro Tello MD [address] [facility] [place] [address] documented as of this encounter Goals Goal Patient Goal Type Associated Problems Recent Progress Patient-Stated? Author Increase physical activity Lifestyle No Brittani Troy BS MEd documented as of this encounter Visit Diagnoses Not on filedocumented in this encounter Additional Health Concerns Assessment Noted Time PHQ-9 Depression Total Score: 1 09/19/19 21 1:21 PM EST documented as of this encounter Care Teams Solar Manufacturer'S Representative Relationship Specialty Start Date End Date Luis Fernando Jain MD [address] [place] [address] PCP - General Family Medicine 09/16/23 Doris Flaherty MD [address] [place] [address] Resident Internal Medicine 09/19/20 Dinesh Torrez MD 47[address] [facility] [place] [address] Endocrinology/Diabetes/Met abolism 12/01/20 [place] [address] [facility]. [address] [place], [place] [id number] Otolaryngology 01/13/21 Inez Watson, GUIDO [address] [place] [address] Registered Nurse 01/19/21 Delon Zheng MD 2[address] [facility]. [address] [place] [address] Cardiology 01/27/21 Reyna [place] 02/03/21 Ynes Méndez MA [address] [place] [address] 02/24/21 Deena De La Rosa, GUIDO [address] [place], [place] [address] Registered Nurse 03/01/21 Dawson Cade MD 2[address] [facility] [address] [place] [address] Cardiology 03/02/21 Francisco Coronado MD [address] [place] [address] [address] [place] [address] Interventional Cardiology 03/03/21 Avery Diehl, RN [address] [place] [address] Outreach Director 07/03/21 Isidoro Tello MD [facility] [address] [place], [place] [address] Cardiology 07/10/21 Tank Duffy NP [address] [place] [address] [address] [place] [address] Nurse Practitioner Cardiology 07/23/21 Dougie Barber MD [address] [place] [address]. [address] [place] [address] Clinical Cardiac Electrophysiology 08/18/21 rAmando Nieves MD 75[address] [facility] [place] [address] Interventional Cardiology 08/18/21 Gerardo Crawford MD [facility] [address] [facility]. [address] [place] [address] Otolaryngology 10/28/21 Regino Jang NP [address] [place] [address]. [address] [place] [address] Cardiology 11/06/21 Acosta Pittman MD [address] [place] [address] 209 [place] [address] Otolaryngology 11/23/21 Nicole Antony NP [address] [place] [address] Nurse Practitioner Cardiology 11/28/21 documented as of this encounter
--- OUTSIDE RECORDS SUMMARY | 2024-12-31 09:13 | XMS_ITS | Encounter Summary ---
Author Organization [facility] Address [address] [place] [address] Care Team Providers Care Manager Materials Management Name Role Phone Doris Flaherty MD Unavailable [phone] Dinesh Torrez MD Unavailable [phone] Roverto Sears MD Unavailable [phone] Inez Watson RN Unavailable Delon Zheng MD Unavailable [phone] Reyna Leon Unavailable Unavailable Ynes Méndez MA Unavailable [phone] Deena De La Rosa RN Unavailable [phone] Dawson Cade MD Unavailable [phone] Francisco Coronado MD Unavailable Unavailable Avery Diehl RN Unavailable [phone] Isidoro Tlelo MD Unavailable [phone] Tank Duffy NP Unavailable +[phone] Dougie Barber MD Unavailable [phone] Armando Nieves MD Unavailable Gerardo Crawford MD Unavailable [phone] Regino Jang NP Unavailable +- [phone] Acosta Pittman MD Unavailable [phone] Nicole Antony NP Unavailable [phone] Luis Fernando Jain MD Primary Care Provider [phone] Encounter Details Date Type Department Care Team (Late st Contact Info) Description 02/11/2024 Mobile Encounter Medical Stepdown Unit [address] [place] [address] [place] [address] [facility]. [address] [place], [place] [id number] Social History Tobacco Use Types Packs/Day Years [...] Description 03/26/2025 2:00 PM EDT Appointment [facility] Physicians - Heart & Vascular, [place] [address] [place] [address] Isidoro Tello MD [address] [facility] [place], [place] [id number] documented as of this encounter Goals Goal Patient Goal Type Associated Problems Recent Progress Patient-Stated? Author Increase physical activity Lifestyle No Brittani Troy BS MEd documented as of this encounter Visit Diagnoses Not on filedocumented in this encounter Additional Health Concerns Assessment Noted Time PHQ-9 Depression Total Score: 1 09/19/19 21 1:21 PM EST documented as of this encounter Care Teams Manager Materials Management Relationship Specialty Start Date End Date Luis Fernando Jain MD [address] [place] [id number] PCP - General Family Medicine 09/16/23 Doris Flaherty MD [address] [place] [address] Resident Internal Medicine 09/19/20 Dinesh Torrez MD [address] [place], [place] [id number] Endocrinology/Diabetes/Met abolism 12/01/20 [place] [address] [place], [place] [id number] Otolaryngology 01/13/21 Inez Watson, GUIDO [address] [place], [place] [address] Registered Nurse 01/19/21 Delon Zheng MD [address] [facility] [place] [address] Cardiology 01/27/21 Tyree Leonelle 02/03/21 Ynes Méndez MA [address] [place] [address] 02/24/21 Deena De La Rosa, GUIDO [address] [facility] [place] [address] Registered Nurse 03/01/21 Dawson Cade MD [facility] [address] [place] [address] Cardiology 03/02/21 Francisco Coronado MD [address] [place], [place] [address] [address] [place] [address] Interventional Cardiology 03/03/21 Avery Diehl RN [address] [place] [address] Candy Attendant 07/03/21 Isidoro Tello MD [address] [facility] [place] [address] Cardiology 07/10/21 Tank Duffy NP [address] [place] [address] [address] [place] [address] Nurse Practitioner Cardiology 07/23/21 Dougie Barber MD [address] [place], [place] [address]. [address] [place] [address] Clinical Cardiac Electrophysiology 08/18/21 Armando Nieves MD [address] [facility] [place] [address] [place] [address] Interventional Cardiology 08/18/21 Gerardo Crawford MD [address] [place] [address] Otolaryngology 10/28/21 Regino Jang NP [address] [place] [address] [address] [place] [address] Cardiology 11/06/21 Acosta Pittman MD [facility] [facility] [address] [place] [address] Otolaryngology 11/23/21 [place] [address] [place] [address] [employer] [place] [address] Nurse Practitioner Cardiology 11/28/21 documented as of this encounter
== END 2024-12-28 23:59 ==
LOC: LAB.DROPOF 12-31 09:10
PROVIDERS: PCP Nurse Practitioner Family; Visit Provider Nurse Practitioner Family
DX: D62 Acute posthemorrhagic anemia (principal); R53.83 Other fatigue; E03.9 Hypothyroidism, unspecified; E78.5 Hyperlipidemia, unspecified; R53.1 Weakness
CPT/HCPCS: 80053; 81001; 82607; 82728; 82746; 83540; 83550; 84443; 85025; 87086; 87088; 87186